=== PATIENT | female | born 1965 | race Caucasian/White ===

== ENCOUNTER 2016-05-20 07:32 | Emergency (ER) | payer OTHER ==
[2016-05-20 08:16] LABS: Hematocrit 31 % (35-47); Hemoglobin 10.1 g/dl (12.0-16.0); Mean Corpuscular HGB Conc 33 g/dl (31-36); Mean Corpuscular Hemoglobin 31 pg (27-31); Mean Corpuscular Volume 93 fL (80-97); Mean Platelet Volume 7 um3 (7.4-10.4); Red Blood Count 3.31 10^6/ul (4.0-5.4); Red Cell Distribution Width 17 % (10.5-15); White Blood Count 6.4 10^3/ul (3.5-10.8)
--- NOTE | 2016-05-20 08:19 | RAD ---
HISTORY: Chest pain COMPARISONS: None VIEWS: 2: Frontal and lateral views of the chest. FINDINGS: CARDIOMEDIASTINAL SILHOUETTE: The cardiomediastinal silhouette is normal. A prosthetic heart valve is noted. ITZEL: The itzel are normal. PLEURA: The costophrenic angles are sharp. No pleural abnormalities are noted. LUNG PARENCHYMA: There is hyperinflation with flattening of the diaphragm and expansion of the AP diameter of the chest. ABDOMEN: The upper abdomen is clear. There is no subphrenic gas. BONES AND SOFT TISSUES: The patient is status post median sternotomy. Degenerative changes are noted OTHER: None. IMPRESSION: HYPERINFLATION, CONSISTENT WITH COPD. NO ACTIVE CARDIOPULMONARY DISEASE.
[2016-05-20 08:36] LABS: ALT 9 U/L (7-52); AST 9 U/L (13-39); Albumin 3.7 g/dL (3.2-5.2); Alkaline Phosphatase 80 U/L (34-104); Anion Gap 5 mmol/L (2-11); BUN/Creatinine Ratio 15.2 (8-20); Blood Urea Nitrogen 17 mg/dL (6-24); C Reactive Protein 20.03 mg/L (< 5.00); CO2 Carbon Dioxide 25 mmol/L (22-32); Calcium 8.9 mg/dL (8.6-10.3); Chloride 105 mmol/L (101-111); Creatine Kinase 58 U/L (10-223); EGFR Non-African American 51.3 (>60); Globulin 3.5 g/dL (2-4); Glucose 122 mg/dL (70-100); Lipase < 10 U/L (11.0-82.0); Potassium 3.9 mmol/L (3.5-5.0); Sodium 135 mmol/L (133-145); Total Protein 7.2 g/dL (6.4-8.9)
[2016-05-20 08:37] LABS: Troponin I 0.01 ng/mL (<0.04)
[2016-05-20] MEDS ORDERED: Ondansetron INJ* 2 MG/ML VIAL IV ONE (08:50)
[2016-05-20] MEDS ORDERED: Morphine INJ* 4 MG/ML 1 ML CARPUJECT IV ONE ×3 (08:50→13:01)
[2016-05-20] MEDS ORDERED: Iodixanol* (CONTRAST) 320 MG/ML 100 ML SDV IV ONE (09:01)
[2016-05-20 09:06] LABS: TSH (Thyroid Stimulating Horm) 8.62 mcIU/mL (0.34-5.60)
[2016-05-20 10:09] LABS: Urine Bacteria Absent (Absent); Urine Bilirubin Negative (Negative); Urine Glucose Negative (Negative); Urine Nitrite Negative (Negative)
--- NOTE | 2016-05-20 11:21 | RAD ---
HISTORY: Chest pain, positive d-dimer COMPARISONS: CT of the abdomen and pelvis dated August 14, 2012 TECHNIQUE: Multiple contiguous axial CT scans of the chest were obtained after the administration of nonionic intravenous contrast, timed to the pulmonary arterial phase of contrast enhancement.. Coronal and sagittal multiplanar reformations are also submitted for review. FINDINGS: NECK AND THYROID: The lower neck and thyroid are unremarkable. CHEST WALL: There is no lower cervical, axillary, or supraclavicular lymphadenopathy by size criteria. HEART AND PERICARDIUM: There is a prosthetic mitral valve AORTA AND PULMONARY VASCULATURE: There is no pulmonary arterial filling defect to suggest pulmonary embolism. There is no linear filling defect within the aorta to suggest aortic dissection. MEDIASTINUM: There is no mediastinal lymphadenopathy by size criteria. ITZEL: There is no hilar lymphadenopathy by size criteria. AIRWAY AND ESOPHAGUS: The airway is unremarkable, without endobronchial filling defect. The esophagus is grossly normal. LUNG PARENCHYMA: The lungs are clear. PLEURA: No pleural abnormalities are noted. UPPER ABDOMEN: There is nodular thickening of the adrenal gland on the left, stable BONES AND SOFT TISSUES: The patient is status post median sternotomy. Degenerative changes are noted of the spine OTHER: None. IMPRESSION: NO PULMONARY ARTERIAL FILLING DEFECT TO SUGGEST PULMONARY EMBOLISM
--- NOTE | 2016-05-20 12:27 | RAD ---
HISTORY: Right lower extremity Pedal edema, positive d-dimer COMPARISONS: None relevant TECHNIQUE: Multiple transverse and longitudinal ultrasound images were obtained of the right lower extremity from the level of the common femoral vein inferiorly through to the infrapopliteal veins using grayscale, color Doppler, and spectral Doppler imaging with and without compression and with augmentation. Comparison images were obtained of the contralateral common femoral vein. FINDINGS: VEINS: The venous system of the right lower extremity is compressible throughout its course, with normal flow on color Doppler imaging and normal response to augmentation on spectral Doppler imaging. SOFT TISSUES: Unremarkable. OTHER FINDINGS: None. IMPRESSION: NO RIGHT LOWER EXTREMITY DEEP VEIN THROMBOSIS
--- NOTE | 2016-05-20 13:07 | ED ---
Nasreen Oreilly Salem, scribed for Anish Box MD on 05/20/16 at 0805 . HPI Chest Pain - HPI Summary HPI Summary: Patient is 50 y/o female who presents to the ED with CP localized on the left side since yesterday. She reports SOB, lightheadedness, pedal edema, and dizziness. She rates her pain as an 8-9/10 and reports it radiates to her neck and arm. Pain is worsened by sitting up and ambulating. Pt states she had a mitral valve replacement in 2012 (but denies any stent placements). She describes the CP as similar to the sx in 2012 that brought her into the hospital. She also reports an infection in her valve in August 2015 and a couple of surgeries in March 2016 and April 2016 for DVT. Pt is on Coumadin. PMHx is significant for COPD, [place], Asthma, DM, and DVT. - History of Current Complaint Time Seen by Provider: 05/20/16 07:35 Hx Obtained From: Patient Onset/Duration: Started Days Ago - 1 day., Still Present Timing: Constant, Lasting Days Initial Severity: Moderate Current Severity: Moderate Chest Pain Location: Left Anterior Chest Pain Radiates To:: Arm, Neck Aggravating Factor(s): Position - Sitting up., Movement - Ambulating. Alleviating Factor(s): Position - Recumbent position. Associated Signs and Symptoms: Positive: Chest Pain, Dizziness, Shortness of Breath, Swelling - Legs., Lightheadedness - Allergy/Home Medications Allergies/Adverse Reactions: Allergies Allergy/AdvReac Type Severity Reaction Status Date / Time Codeine Allergy Unknown Verified 05/20/16 08:17 Reaction Details Ketorolac Tromethamine Allergy Unknown Verified 05/20/16 08:17 [From Toradol] Reaction Details Tramadol [From Ultram] Allergy Unknown Verified 05/20/16 08:17 Reaction Details PMH/Surg Hx/FS Hx/Imm Hx Endocrine/Hematology History: Reports: Hx Diabetes Denies: Hx Anticoagulant Therapy Cardiovascular History: Reports: Hx Deep Vein Thrombosis, Hx Hypertension - on exertion, Other Cardiovascular Problems/Disorders - blockage of carotid arteries bilaterally. Denies: Hx Congestive Heart Failure Respiratory History: Reports: Hx Asthma, Hx Chronic Obstructive Pulmonary Disease (COPD) - emphysema, Other Respiratory Problems/Disorders - COPD, pneumonia GI History: Reports: Other GI Disorders - diverticulitis, constipation History: Reports: Hx Renal Disease - new onset renal disease found on urine test at [place]., Other Problems/Disorders - hx of kidney stones, family hx of polycystic kidneys, new onset renal dis. Musculoskeletal History: Reports: Other Musculoskeletal History - fibromyalgia, restless leg syndrome Neurological History: Reports: Other Neuro Impairments/Disorders - depression, anxiety, personality disorder. DDD Denies: Hx Dementia, Hx Seizures Psychiatric History: Denies: Hx Substance Abuse - Cancer History Cancer Type, Location and Year: cervical ca - Surgical History Surgery Procedure, Year, and Place: cholecystectomy, appendectomy, carpal tunnel , bladder sling, balloon in uterus Infectious Disease History: Yes Infectious Disease History: Reports: Hx of Known/Suspected MRSA - 10 years ago/ in throat Denies: Hx Hepatitis, Hx Human Immunodeficiency Virus (HIV), Traveled Outside the [place] in Last 30 Days - Family History Known Family History: Positive: Diabetes, Other - COPD. Blood Clotting Disorders. Aneurysm. - Social History Substance Use Type: Reports: None Hx Tobacco Use: Yes Review of Systems Positive: Other - Reports open wound on foot and buttocks. Positive: Chest Pain - Radiates to neck and arm. Positive: Shortness Of Breath Positive: Edema - Pedal. Neurological: Other - Lightheadedness. Dizziness. All Other Systems Reviewed And Are Negative: Yes Physical Exam Triage Information Reviewed: Yes Vital Signs On Initial Exam: Initial Vitals Temp Pulse Resp BP Pulse Ox 99.7 F 81 16 125/70 100 05/20/16 07:33 05/20/16 07:33 05/20/16 07:33 05/20/16 07:33 05/20/16 07:33 Vital Signs Reviewed: Yes Appearance: Positive: Well-Appearing Skin: Positive: Warm, Skin Color Reflects Adequate Perfusion, Dry Head/Face: Positive: Normal Head/Face Inspection Eyes: Positive: EOMI, LINDSEY ENT: Positive: Normal ENT inspection Neck: Positive: Supple, Nontender Respiratory/Lung Sounds: Positive: Clear to Auscultation, Breath Sounds Present Cardiovascular: Positive: RRR Abdomen Description: Positive: Nontender, Soft Bowel Sounds: Positive: Present Musculoskeletal: Positive: Edema Left, Edema Right, Other - Bilateral surgical wound eschars on lower extremities. Neurological: Positive: Sensory/Motor Intact, Alert, Oriented to Person Place, Time Psychiatric: Positive: Affect/Mood Appropriate Diagnostics - Vital Signs Vital Signs Temp Pulse Resp BP Pulse Ox 05/20/16 07:33 99.7 F 81 16 125/70 100 - Laboratory Lab Results: Lab Results 05/20/16 05/20/16 05/20/16 Range/Units 08:00 08:00 08:00 WBC 6.4 (3.5-10.8) 10^3/ul RBC 3.31 L (4.0-5.4) 10^6/ul Hgb 10.1 L (12.0-16.0) g/dl Hct 31 L (35-47) % MCV 93 (80-97) fL MCH 31 (27-31) pg MCHC 33 (31-36) g/dl RDW 17 H (10.5-15) % Plt Count 220 (150-450) 10^3/ul MPV 7 L (7.4-10.4) um3 Neut % (Auto) 63.5 (38-83) % Lymph % (Auto) 27.5 (25-47) % [place] % (Auto) 5.0 (1-9) % Eos % (Auto) 2.8 (0-6) % Baso % (Auto) 1.2 (0-2) % Absolute Neuts (auto) 4.1 (1.5-7.7) 10^3/ul Absolute Lymphs (auto) 1.8 (1.0-4.8) 10^3/ul Absolute Monos (auto) 0.3 (0-0.8) 10^3/ul Absolute Eos (auto) 0.2 (0-0.6) 10^3/ul Absolute Basos (auto) 0.1 (0-0.2) 10^3/ul Absolute Nucleated RBC 0 10^3/ul Nucleated RBC % 0 INR (Anticoag Therapy) 1.64 H (0.89-1.11) APTT 37.5 H (26.0-36.3) seconds D-Dimer, Quantitative 306 H (Less Than 230) ng/mL Sodium (133-145) mmol/L Potassium (3.5-5.0) mmol/L Chloride (101-111) mmol/L Carbon Dioxide (22-32) mmol/L Anion Gap (2-11) mmol/L BUN (6-24) mg/dL Creatinine (0.51-0.95) mg/dL Est GFR ( Amer) (>60) Est GFR (Non-Af Amer) (>60) BUN/Creatinine Ratio (8-20) Glucose (70-100) mg/dL Lactic Acid (0.5-2.0) mmol/L Calcium (8.6-10.3) mg/dL Magnesium (1.9-2.7) mg/dL Total Bilirubin (0.2-1.0) mg/dL AST (13-39) U/L ALT (7-52) U/L Alkaline Phosphatase (34-104) U/L Total Creatine Kinase (10-223) U/L CK-MB (CK-2) (0.6-6.3) ng/mL Troponin I (<0.04) ng/mL C-Reactive Protein (< 5.00) mg/L B-Natriuretic Peptide 266 H ( - 100) pg/mL Total Protein (6.4-8.9) g/dL Albumin (3.2-5.2) g/dL Globulin (2-4) g/dL Albumin/Globulin Ratio (1-3) Lipase (11.0-82.0) U/L TSH (0.34-5.60) mcIU/mL Urine Color Urine Appearance Urine pH (5-9) Ur Specific [place] (1.010-1.030) Urine Protein (Negative) Urine Ketones (Negative) Urine Blood (Negative) Urine Nitrate (Negative) Urine Bilirubin (Negative) Urine Urobilinogen (Negative) Ur Leukocyte Esterase (Negative) Urine WBC (Auto) (Absent) Urine RBC (Auto) (Absent) Ur Squamous Epith Cells (Absent) Urine Bacteria (Absent) Urine Glucose (Negative) 05/20/16 05/20/16 05/20/16 Range/Units 08:00 08:00 09:30 WBC (3.5-10.8) 10^3/ul RBC (4.0-5.4) 10^6/ul Hgb (12.0-16.0) g/dl Hct (35-47) % MCV (80-97) fL MCH (27-31) pg MCHC (31-36) g/dl RDW (10.5-15) % Plt Count (150-450) 10^3/ul MPV (7.4-10.4) um3 Neut % (Auto) (38-83) % Lymph % (Auto) (25-47) % [place] % (Auto) (1-9) % Eos % (Auto) (0-6) % Baso % (Auto) (0-2) % Absolute Neuts (auto) (1.5-7.7) 10^3/ul Absolute Lymphs (auto) (1.0-4.8) 10^3/ul Absolute Monos (auto) (0-0.8) 10^3/ul Absolute Eos (auto) (0-0.6) 10^3/ul Absolute Basos (auto) (0-0.2) 10^3/ul Absolute Nucleated RBC 10^3/ul Nucleated RBC % INR (Anticoag Therapy) (0.89-1.11) APTT (26.0-36.3) seconds D-Dimer, Quantitative (Less Than 230) ng/mL Sodium 135 (133-145) mmol/L Potassium 3.9 (3.5-5.0) mmol/L Chloride 105 (101-111) mmol/L Carbon Dioxide 25 (22-32) mmol/L Anion Gap 5 (2-11) mmol/L BUN 17 (6-24) mg/dL Creatinine 1.12 H (0.51-0.95) mg/dL Est GFR ( Amer) 66.0 (>60) Est GFR (Non-Af Amer) 51.3 (>60) BUN/Creatinine Ratio 15.2 (8-20) Glucose 122 H (70-100) mg/dL Lactic Acid 1.2 (0.5-2.0) mmol/L Calcium 8.9 (8.6-10.3) mg/dL Magnesium 2.0 (1.9-2.7) mg/dL Total Bilirubin 0.30 (0.2-1.0) mg/dL AST 9 L (13-39) U/L ALT 9 (7-52) U/L Alkaline Phosphatase 80 (34-104) U/L Total Creatine Kinase 58 (10-223) U/L CK-MB (CK-2) 2.5 (0.6-6.3) ng/mL Troponin I 0.01 (<0.04) ng/mL C-Reactive Protein 20.03 H (< 5.00) mg/L B-Natriuretic Peptide ( - 100) pg/mL Total Protein 7.2 (6.4-8.9) g/dL Albumin 3.7 (3.2-5.2) g/dL Globulin 3.5 (2-4) g/dL Albumin/Globulin Ratio 1.1 (1-3) Lipase < 10 L (11.0-82.0) U/L TSH 8.62 H (0.34-5.60) mcIU/mL Urine Color Yellow Urine Appearance Clear Urine pH 6.0 (5-9) Ur Specific [place] 1.016 (1.010-1.030) Urine Protein 2+(100 mg/dl) H (Negative) Urine Ketones Negative (Negative) Urine Blood Negative (Negative) Urine Nitrate Negative (Negative) Urine Bilirubin Negative (Negative) Urine Urobilinogen Negative (Negative) Ur Leukocyte Esterase 2+ H (Negative) Urine WBC (Auto) Trace(0-5/hpf) (Absent) Urine RBC (Auto) 1+(3-5/hpf) H (Absent) Ur Squamous Epith Cells Present H (Absent) Urine Bacteria Absent (Absent) Urine Glucose Negative (Negative) Result Diagrams: 05/20/16 08:00 05/20/16 08:00 Lab Statement: Any lab studies that have been ordered have been reviewed, and results considered in the medical decision making process. - Radiology CXR Radiology Interpretation Completed By: Radiologist - IMPRESSION: HYPERINFLATION , CONSISTENT WITH COPD. NO ACTIVE CARDIOPULMONARY DISEASE. - CT CHEST CT Interpretation Completed By: Radiologist - IMPRESSION: NO PULMONARY ARTERIAL FILLING DEFECT TO SUGGEST PULMONARY EMBOLISM - Ultrasound No standard instances Ultrasound Interpretation Completed By: Radiologist - IMPRESSION: NO RIGHT LOWER EXTREMITY DEEP VEIN THROMBOSIS - EKG 0731 Ectopy: None EKG Interpretation: Normal sinus [address] elevation. Re-Evaluation - Re-Evaluation First Eval Re-Evaluation Time: 08:46 Comment: Disscused test results with pt. Chest Pain Course/Dx - Course Assessment/Plan: DISCUSSED RESULTS WITH PATIENT. SHE HAS RUN OUT OF HER CHRONIC PAIN MED RX. DISCUSSED ADMISSION WITH PATIENT, SHE DECLINED ADMISSION AT THIS TIME. DISCHARGE HOME STABLE. RX OXYCODONE 5MG #15 TO COVER HER UNTIL SHE CAN CONTACT HER PMD. - Diagnoses Provider Diagnoses: Chest pain Discharge - Discharge Plan Condition: Stable Disposition: HOME Prescriptions: oxyCODONE TAB* [Roxycodone TAB 5 mg*] 5 mg PO Q4H PRN #15 tab MDD 6 PRN Reason: Pain Patient Education Materials: Chest Pain (ED) Referrals: Toya Iniguez MD [Primary Care Provider] - Additional Instructions: FOLLOW UP WITH YOUR DOCTOR. RETURN TO THE EMERGENCY DEPARTMENT FOR ANY WORSENING OF YOUR CONDITION; PAIN, SHORTNESS OF BREATH, YOU FEEL ILL OR QUESTIONS OR CONCERNS. The documentation as recorded by the Nasreen goldman Salem accurately reflects the service I personally performed and the decisions made by me, Anish Box MD.
[2016-05-20 13:48] VITALS: BP 126/64
== END 2016-05-20 13:45 | disposition home or self-care (01) ==
LOC: ED 07:32
DX: R07.9 Chest pain, unspecified (principal); R42 Dizziness and giddiness; R06.02 Shortness of breath
CPT/HCPCS: 36415; 71020; 71275; 80053; 81003; 81015; 82550; 82553; 83605; 83690; 83735; 83880; 84443; 84484; 85025; 85379; 85610; 85730; 86140; 87086; 99283; J2270; J2405; Q9967

== ENCOUNTER 2017-05-22 14:21 | Emergency (ER) | payer OTHER ==
[2017-05-22] MEDS ORDERED: NS 0.9% 1000 ML* 1,000 ML IV ONE (14:52)
[2017-05-22] MEDS ORDERED: Albuterol 2.5 MG/3 ML NEB.SOL* (0.083%) INH ONE (15:15)
[2017-05-22] MEDS ORDERED: methylPREDNISolone 125 MG* 2 ML VIAL IV ONE (15:15)
[2017-05-22] MEDS ORDERED: Morphine INJ* 10 MG/ML 1 ML CARPUJECT IV ONE (15:16)
[2017-05-22] MEDS ORDERED: Ondansetron INJ* 2 MG/ML VIAL IV ONE (15:16)
--- NOTE | 2017-05-22 15:36 | RAD ---
Indication: Chest pain. Single frontal view of the chest performed at 1513 hours was reviewed. Comparison is made with previous exam dated May 20, 2016. No mediastinal shift is noted. Heart is of normal size and configuration. Lung artis appear clear. Patient is status post changed sternal thoracotomy. IMPRESSION: NO ACTIVE CARDIOPULMONARY DISEASE IS NOTED.
[2017-05-22 15:41] LABS: ABS Basophils 0 10^3/ul (0-0.2); ABS Eosinophils 0 10^3/ul (0-0.6); ABS Lymphocytes 1.3 10^3/ul (1.0-4.8); ABS Monocytes 0.1 10^3/ul (0-0.8); ABS Neutrophils 7.5 10^3/ul (1.5-7.7); ABS Nucleated RBC 0 10^3/ul; Eosinophil % 0 % (0-6); Hematocrit 37 % (35-47); Hemoglobin 12.7 g/dl (12.0-16.0); Lymphocyte % 14.4 % (25-47); Mean Corpuscular HGB Conc 34 g/dl (31-36); Mean Corpuscular Hemoglobin 32 pg (27-31); Mean Corpuscular Volume 93 fL (80-97); Mean Platelet Volume 7 um3 (7.4-10.4); Nucleated Red Blood Cells % 0.1; Platelet Count 233 10^3/ul (150-450); Red Blood Count 3.98 10^6/ul (4.0-5.4); Red Cell Distribution Width 15 % (10.5-15); White Blood Count 8.9 10^3/ul (3.5-10.8)
[2017-05-22 15:49] LABS: Urine Appearance Clear; Urine Blood 2+ (Negative); Urine Color Straw; Urine Ketones Negative (Negative); Urine Protein 2+(100 mg/dL) (Negative); Urine Specific Gravity 1.008 (1.010-1.030); Urine Urobilinogen Negative (Negative)
[2017-05-22 15:53] LABS: EGFR Non-African American 69.3 (>60)
[2017-05-22] MEDS ORDERED: Morphine ORAL.SOLN 10 mg* 2 MG/ML UDC 5 ml PO ONE (16:13)
[2017-05-22] MEDS ORDERED: Morphine TAB Extended Release (*) 30 MG TAB.ER PO ONE (16:43)
[2017-05-22 17:02] VITALS: BP 123/65
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
== END 2017-05-22 17:00 | disposition home or self-care (01) ==
LOC: ED 14:21
DX: R07.9 Chest pain, unspecified (principal); G89.29 Other chronic pain; E11.65 Type 2 diabetes mellitus with hyperglycemia; R31.29 Other microscopic hematuria; F17.200 Nicotine dependence, unspecified, uncomplicated; Z88.5 Allergy status to narcotic agent
CPT/HCPCS: 36415; 71045; 80053; 81003; 81015; 82550; 82553; 83605; 83735; 83880; 84484; 85025; 85379; 85610; 87040; 94640; 96360; 96374; 96375; 99283; A9270-GY; J2270; J2405; J2930

== ENCOUNTER 2019-07-16 15:53 | Inpatient (IN) | payer OTHER ==
--- NOTE | 2019-07-16 16:03 | ED ---
Complex/Multi-Sys Presentation - HPI Summary HPI Summary: 53 year old F presenting to [facility] via EMS with a chief complaint of shortness of breath and some chest pain. Per EMS the patient had a right sided lung biopsy done here by Dr. Cervantes and was discharged a few days ago. She developed pain with her chronic cough 2 days ago and was seen in [place] for a chest x- ray today which revealed that her lung was "more collapsed than before." The patient rates the pain 8/10 in severity. Symptoms aggravated by nothing. Symptoms alleviated by nothing. Patient denies any fever or chills. Medication list reviewed. Allergy list reviewed. - History Of Current Complaint Hx Obtained From: Patient, EMS Onset/Duration: Lasting Days Timing: Constant Aggravating Factor(s): None Alleviating Factor(s): None Associated Signs And Symptoms: Positive: SOB, Chest Pain, Other - Pain with cough. Negative: Fever - Allergies/Home Medications Allergies/Adverse Reactions: Allergies Allergy/AdvReac Type Severity Reaction Status Date / Time codeine Allergy Unknown Verified 07/10/19 09:01 Reaction Details ketorolac [From Toradol] Allergy Unknown Verified 07/10/19 09:01 Reaction Details tramadol Allergy Unknown Verified 07/10/19 09:01 Reaction Details Home Medications: Home Medications Benzonatate CAP* [Tessalon CAP*] 100 mg PO BID PRN 08/14/12 [History Confirmed 07/16/19] Docusate CAP* [Colace Cap*] 200 mg PO BID 08/14/12 [History Confirmed 07/16/19] Fluticasone-Salmeterol 250-50* [Advair Diskus 250-50*] 1 inh INH BID 08/14/12 [ History Confirmed 07/16/19] Tiotropium CAPSULE (NF) [Spiriva*] 1 cap INH DAILY 08/14/12 [History Confirmed 07/16/19] zzInsulin GLARGINE(*) [Lantus(*)] 15 units SUBCUT BEDTIME 03/06/13 [History Confirmed 07/16/19] Acetaminophen TAB* [Tylenol TAB*] 325 mg PO Q4H PRN 05/22/17 [History Confirmed 07/16/19] Albuterol 2.5MG/3ML (0.083%)* [Ventolin 2.5 MG/3 ML NEB.ALEXANDER*] 2.5 mg INH .Q4-6H PRN 05/22/17 [History Confirmed 07/16/19] Albuterol inh POWDER (NF) [Proair Respiclick] 2 puff INH .Q4-6H PRN 05/22/17 [ History Confirmed 07/16/19] Baclofen TAB* [Lioresal TAB*] 10 mg PO TID 05/22/17 [History Confirmed 07/16/19] Budesonide NASAL (NF) [Rhinocort Aqua (NF)] 2 spray BOTH NARES DAILY 05/22/17 [ History Confirmed 07/16/19] Carbidopa/Levodop 25/100 MG(*) [Sinemet 25/100 TAB(*)] 1 tab PO BID 05/22/17 [ History Confirmed 07/16/19] Cetirizine* [ZyrTEC 10 MG TAB*] 10 mg PO DAILY 05/22/17 [History Confirmed 07/15] Ferrous Sulfate TAB* 325 mg PO BID 05/22/17 [History Confirmed 07/16/19] Gabapentin CAP(*) [Neurontin 100 mg CAP(*)] 300 mg PO QPM 05/22/17 [History Confirmed 07/16/19] Insulin Lispro [Humalog Kwikpen] 0 - 100 unit SUBCUT . DIRECTED 05/22/17 [ History Confirmed 07/16/19] Lactulose* 1 oz PO BEDTIME PRN 05/22/17 [History Confirmed 07/16/19] Levalbuterol HFA INHALER* [Xopenex Hfa Inhaler*] 1 puff INH Q6H PRN 05/22/17 [ History Confirmed 07/16/19] Levothyroxine TAB* [Synthroid TAB*] 50 mcg PO DAILY 05/22/17 [History Confirmed 07/16/19] Montelukast Sodium TAB* [Singulair TAB*] 10 mg PO BEDTIME 05/22/17 [History Confirmed 07/16/19] Multivitamins/Minerals TAB* [Theragran/minerals TAB*] 1 tab PO DAILY 05/22/17 [ History Confirmed 07/16/19] Nitroglycerin TAB 0.4 MG* 0.4 mg SL Q5M PRN 05/22/17 [History Confirmed 07/16/19 ] Omeprazole CAP (NF) [Prilosec CAP* 20 MG] 20 mg PO DAILY 05/22/17 [History Confirmed 07/16/19] Ondansetron ODT TAB* [Zofran 4 MG Odt TAB*] 4 mg PO TID PRN 05/22/17 [History Confirmed 07/16/19] Ranitidine TAB (NF) [Zantac TAB (NF)] 150 mg PO BID 05/22/17 [History Confirmed 07/16/19] Simvastatin TAB(NF) [Zocor(NF)] 20 mg PO BEDTIME 05/22/17 [History Confirmed ] Vilazodone (NF) [Viibryd (NF)] 40 mg PO DAILY 05/22/17 [History Confirmed ] Warfarin TAB(*) [Coumadin TAB(*)] 5 mg PO BEDTIME 05/22/17 [History Confirmed ] clonazePAM TAB(*) [KlonoPIN TAB(*)] 0.5 mg PO BID 05/22/17 [History Confirmed ] guaiFENesin ER TAB [Mucinex*] 1,200 mg PO BID PRN 05/22/17 [History Confirmed ] Oxycodone HCl 5 mg PO TID 07/10/19 [History Confirmed 07/16/19] QUEtiapine XR TAB* [Seroquel Xr 200 TAB*] 200 mg PO DAILY 07/10/19 [History Confirmed 07/16/19] PMH/Surg Hx/FS Hx/Imm Hx Endocrine/Hematology History: Reports: Hx Diabetes Denies: Hx Anticoagulant Therapy Cardiovascular History: Reports: Hx Deep Vein Thrombosis, Hx Hypertension, Other Cardiovascular Problems/Disorders - blockage of carotid arteries bilaterally, Hx mechanical valve Denies: Hx Congestive Heart Failure Respiratory History: Reports: Hx Asthma, Hx Chronic Obstructive Pulmonary Disease (COPD), Hx Pneumonia, Other Respiratory Problems/Disorders - COPD, pneumonia GI History: Reports: Other GI Disorders - diverticulitis, constipation History: Reports: Hx Kidney Stones, Hx Renal Disease, Other Problems/ Disorders - hx of kidney stones, family hx of polycystic kidneys, new onset renal dis. Musculoskeletal History: Reports: Hx Back Problems, Hx Fibromyalgia, Other Musculoskeletal History - restless leg syndrome Neurological History: Reports: Other Neuro Impairments/Disorders - depression, anxiety, personality disorder. DDD Denies: Hx Dementia, Hx Seizures Psychiatric History: Reports: Hx Depression Denies: Hx Substance Abuse - Cancer History Cancer Type, Location and Year: cervical ca - Surgical History Surgical History: Yes Surgery Procedure, Year, and Place: mitral valve replacement, cholecystectomy, appendectomy, carpal tunnel, bladder sling, uterine ablation Infectious Disease History: Reports: Hx of Known/Suspected MRSA Denies: Hx Hepatitis, Hx Human Immunodeficiency Virus (HIV) - Family History Known Family History: Positive: Diabetes, Renal Disease - polycystic kidney disease, Other - COPD. Blood Clotting Disorders. Aneurysm. - Social History Alcohol Use: Rare Hx Substance Use: Yes Substance Use Type: Reports: Marijuana Substance Use Comment - Amount & Last Used: 1 joint daily Hx Tobacco Use: Yes Smoking Status (MU): Light Every Day Tobacco Smoker Review of Systems Negative: Fever, Chills Positive: Chest Pain Positive: Shortness Of Breath, Cough All Other Systems Reviewed And Are Negative: Yes Physical Exam - Summary Physical Exam Summary: VITAL SIGNS: Reviewed. GENERAL: Patient is an obese female who is lying comfortable in the stretcher. Patient is not in any acute distress. HEAD AND FACE: No signs of trauma. No ecchymosis, hematomas or skull depressions. No sinus tenderness. EYES: PERRL, EOMI x 2, No injected conjunctiva, no nystagmus. EARS: Hearing grossly intact. Ear canals and tympanic membranes are within normal limits. MOUTH: Oropharynx within normal limits. NECK: Supple, trachea is midline, no adenopathy, no JVD, no carotid bruit, no c- spine tenderness, neck with full ROM. CHEST: Symmetric, no tenderness at palpation. LUNGS: Decreased breath sounds in the right lung. CVS: Regular rate and rhythm, S1 and S2 present, no murmurs or gallops appreciated. ABDOMEN: Soft, non-tender. No signs of distention. No rebound, no guarding, and no masses palpated. Bowel sounds are normal. EXTREMITIES: FROM in all major joints, no edema, no cyanosis or clubbing. NEURO: Alert and oriented x 3. No acute neurological deficits. Speech is normal and follows commands. SKIN: Dry and warm. Triage Information Reviewed: Yes Vital Signs Reviewed: Yes Procedures - Sedation Patient Received Moderate/Deep Sedation with Procedure: No Diagnostics - Laboratory Result Diagrams: 07/16/19 16:30 07/16/19 16:30 Lab Statement: Any lab studies that have been ordered have been reviewed, and results considered in the medical decision making process. - Radiology Chest x-ray Radiology Interpretation Completed By: Radiologist Summary of Radiographic Findings: Moderate-sized right pneumothorax is present with atelectasis of the right upper lobe. This appears to BE increased in size when compared to previous exam of 2019. ED physician has reviewed this report. Second Chest x-ray Radiology Interpretation Completed By: ED Physician Summary of Radiographic Findings: Expansion of the lung, chest tube in place. ED physician has reviewed and interpreted this report. - EKG 16:13 Cardiac Rate: NL - 89 BPM EKG Rhythm: Sinus Rhythm Summary of EKG Findings: No ST elevations, normal axis. ED physician has reviewed and interpreted this EKG. Re-Evaluation - Re-Evaluation First Eval Re-Evaluation Time: 18:10 Comment: Chest tube is being placed by Dr. Chavez in the emergency department at this time. Complex Multi-Symp Course/Dx Assessment/Plan: 53 year old F presenting to [facility] via EMS with a chief complaint of shortness of breath and some chest pain. Per EMS the patient had a right sided lung biopsy done here by Dr. Cervantes and was discharged a few days ago. She developed pain with her chronic cough 2 days ago and was seen in [place] for a chest x-ray today which revealed that her lung was "more collapsed than before." The patient rates the pain 8/10 in severity. Symptoms aggravated by nothing. Symptoms alleviated by nothing. Patient denies any fever or chills. Medication list reviewed. Allergy list reviewed. In the ED course the patient was placed on a cardiac nurse specialist, IV access was obtained, IV fluids started. Past medical records reviewed. Blood test w/o a significant abnormality except for INR of 1.49, BUN is 29, creatinine 1.05, glucose 215 and CRP of 8.81. Chest x-ray shows a right pneumothorax. I discussed the case with Dr. Chavez who came and assessed the patient. Dr. Chavez placed a right-sided chest tube. He discussed the case with Dr. Mccloud from the hospital services who accepted the patient for admission. At this point the patient is hemodynamically stable. - Diagnoses Provider Diagnoses: Pneumothorax after biopsy - Physician Notifications Discussed Care Of Patient With: Ericka Mccloud Time Discussed With Above Provider: 18:27 Instructed by Provider To: Other - Discussed with Dr. Mccloud who will admit the patient. - Critical Care Time Critical Care Statement: Critical care time is provided exclusive of any time spent performing procedures. Discharge ED - Sign-Out/Discharge Documenting (check all that apply): Patient Departure - Discharge Plan Condition: Stable Disposition: ADMITTED TO [facility] - Billing Disposition and Condition Condition: STABLE Disposition: Admitted to [facility] - Attestation Statements Document Initiated by Scribe: Yes Documenting Scribe: Hannah Torrez Provider For Whom Cameliaibe is Documenting (Include Credential): Junior Pacheco MD Scribe Attestation: Hannah Oreilly scribed for Junior Pacheco MD on 07/16/19 at 205. Scribe Documentation Reviewed: Yes Provider Attestation: The documentation as recorded by the Hannah goldman accurately reflects the service I personally performed and the decisions made by me, Junior Pacheco MD Status of Scribe Document: Viewed
--- OUTSIDE RECORDS SUMMARY | 2019-07-16 16:27 | XMS REPORT | Continuity of Care Document ---
:1965 External Reference #:[id number] Author Name Rommel Luna DO, MPH (transmitted by agent of provider Margie Gaviria) Address [address] [place] [address], [address] [place] [id number] Care Team Providers Name Role Phone Jessica Porter MD - Care Team Information Vinegar Maker [phone] Anesthesiology Gali Bruno L., MD - Family Medicine Care Team Information Vinegar Maker Problems Active Problems Provider Date Type 2 diabetes mellitus Onset: 07/06/2005 Diffuse cervicobrachial syndrome Rommel Luna DO, MPH Onset: 08/10/2008 Myalgia & Myositis Unspecified Rommel Luna DO, MPH Onset: 08/10/2008 Chronic pain Rommel Luna DO, MPH Onset: 10/14/2018 Neck pain Rommel Luna DO, MPH Onset: 10/14/2018 Synovitis and tenosynovitis Rommel Luna DO, MPH Onset: 10/14/2018 Long-term current use of 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 Rommel Luna DO, MPH Onset: 2018 drug Myalgia of auxiliary muscles, head and neck Rommel Luna, DO, MPH Onset: Degenerative joint disease involving multiple LunaRommel valerio, DO, MPH Onset: joints Heart disease Rommel Luna DO, MPH Onset: 10/14/2018 Amputated below knee Rommel Luna DO, MPH Onset: 10/14/2018 Social History Type Date Description Comments Sex Unknown Cigarette Use Current Cigarette Smoker ETOH Use Denies alcohol use Tobacco Use Start: Unknown Patient is a current smoker, smokes every day Smoking Status Reviewed: 06/12/19 Patient is a current smoker, smokes every day Allergies, Adverse Reactions, Alerts Active Allergies Reaction Severity Comments Date Ultram 09/25/2006 Medications Active Medications SIG Qnty Indications Ordering Date Provider Gloria 1 applied daily 3units Rommel Luna, 06/12/2019 1.8% Patches DO, MPH Oxycodone HCL si by mouth 90tabs Rommel Luna, 10/14/2018 5mg Tablets every 8 hours as DO MPH directed chronic pain patient Flonase Allergy Relief si spray each Unknown nostril daily 50mcg/Act Suspension Gabapentin si by mouth Unknown 300mg Capsules three times a day as directed Xarelto 1 by mouth daily Unknown 20mg Tablets Quetiapine Fumarate 1 by mouth daily Unknown 25mg Tablets Humalog sliding scale Unknown 100Unit/ML Solution Basaglar Kwikpen si units per Unknown day 100Unit/ML Solution Pen-Inject SM Aspirin Adult Low 1 by mouth daily Unknown Strength 81mg Chewtabs Amitriptyline HCL si by mouth Unknown 25mg every night Tablets SM Pain Reliever Extra 1 by mouth every Unknown Strength 6 hours 500mg Capsules Atorvastatin Calcium 1 by mouth daily Unknown 40mg Tablets Baclofen take one by mouth Unknown 10mg Tablets twice a day as directed chronic pain. Levothyroxine Sodium 1 by mouth daily Unknown 50mcg Tablets Zoloft si by mouth Unknown 50mg Tablets every day as directed chronic pain patient Carbidopa-Levodopa ER 1 by mouth daily Unknown 25-100mg Tablets ER Albuterol Inhalation two puffs by Unknown mouth bid-tid 90mcg/Dose Aerosol Levalbuterol HCL Unknown 0.63mg/3ML Nebulizer Spiriva Handihaler Unknown 18mcg Capsules Nitrostat Unknown 0.4mg Tablets Sub Advair Diskus 1 puff bid Unknown 250-50mcg/Dose Aerosol Immunizations Description No Information Available Vital Signs Date Vital Result Comment 06/12/2019 8:51am BP Systolic 132 mmHg BP Diastolic 74 mmHg Heart Rate 78 /min Respiratory Rate 20 /min Height 65 inches 5'5" Weight 170.00 lb per patient Pain Level 9 Pain at this time. Pain Level With Medicine 9 on average with meds Pain Level Without Medicine 9 without meds Pain Level After Procedure 7 BP Systolic Recheck 128 mmHg Pulse: 76 BP Diastolic Recheck 78 mmHg Pulse: 76 BMI (Body Mass Index) 28.3 kg/m2 05/14/2019 8:49am BP Systolic 128 mmHg BP Diastolic 82 mmHg Heart Rate 80 /min Respiratory Rate 20 /min Height 65 inches 5'5" Pain Level 9 Pain at this time. Pain Level With Medicine 8 on average with meds Pain Level Without Medicine 9 without meds Pain Level After Procedure 4 BP Systolic Recheck 144 mmHg Pulse: 84 BP Diastolic Recheck 96 mmHg Pulse: 84 Results Description No Information Available Procedures Date Code Description Status 06/12/2019 43625 Omt 1-2 Body Regions Completed 06/12/2019 71829 Therapeutic, Prophylactic Or Diagnostic Injection Subq/Im Completed 06/12/2019 19934 Injection For Nerve Block, Suprascapular Nerve Completed 06/12/2019 Injection, Single Or Mutiple Trigger Points One Or Two Completed Muscles 06/12/2019 Injection, Tendon Origin/Insertion Completed 06/12/2019 Injection, Tendon Origin/Insertion Completed 06/12/201983902 Inject Tendon/Ligament Completed 06/12/2019 Inject Tendon/Ligament Completed 06/12/2019 Inject Tendon/Ligament Completed 06/12/201965556 Inject Tendon/Ligament Completed 06/12/201988082 Inject Tendon/Ligament Completed 05/14/2019 Arthrocentesis/Aspiration/Inj Of Major Joint Or Bursa W/ Completed Ultra 05/14/2019 Arthrocentesis/Aspiration/Inj Of Major Joint Or Bursa W/ Completed Ultra 05/14/2019 57687 Therapeutic, Prophylactic Or Diagnostic Injection Subq/Im Completed 04/14/2019 82896 Therapeutic, Prophylactic Or Diagnostic Injection Subq/Im Completed 04/14/2019 84692 Injection For Nerve Block, Suprascapular Nerve Completed 04/14/201969851 Injection, Single Or Mutiple Trigger Points One Or Two Completed Muscles 04/14/2019 Injection, Tendon Origin/Insertion Completed 04/14/2019 Injection, Tendon Origin/Insertion Completed 04/14/2019 Inject Tendon/Ligament Completed 04/14/2019 Inject Tendon/Ligament Completed 04/14/2019 Inject Tendon/Ligament Completed 04/14/2019 Inject Tendon/Ligament Completed 02/11/2019 18366 Therapeutic, Prophylactic Or Diagnostic Injection Subq/Im Completed Medical Devices Description No Information Available Encounters Type Date Location Provider Dx Diagnosis Office Visit 06/12/2019 Main Office as Of Rommel Luna DO G89.29 Other chronic pain 9:00a 05/03/13 MPH M54.2 Cervicalgia M99.01 Segmental and somatic dysfunction of cervical region M25.541 Pain in joints of right hand M25.542 Pain in joints of left hand M65.88 Other synovitis and tenosynovitis, other site M46.02 Spinal enthesopathy, cervical region M79.12 Myalgia of auxiliary muscles, head and neck R53.83 Other fatigue Z79.891 [facility] (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 Office Visit 05/14/2019 9:15a Main Office as Rommel Luna G89.29 Other chronic Of 05/03/13 DO, MPH pain M54.2 Cervicalgia M25.541 Pain in joints of right hand M25.542 Pain in joints of left hand R53.83 Other fatigue 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 Office Visit 04/14/2019 9:15a Main Office as Rommel Luna G89.29 Other chronic Of 05/03/13 DO, MPH pain M54.2 Cervicalgia M65.88 Other synovitis and tenosynovitis, other site M46.02 Spinal enthesopathy, cervical region M79.12 Myalgia of auxiliary muscles, head and neck Z79.891 [facility] (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 R53.83 Other fatigue Z13.31 Encounter for screening for depression Office Visit 03/11/2019 9:15a Main Office as Rommel Luna G89.29 Other chronic Of 05/03/13 DO, MPH pain M54.2 Cervicalgia M79.12 Myalgia of auxiliary muscles, head and neck 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 Office Visit 02/11/2019 10:15a Main Office as Luna, Rommel, G89.29 Other chronic Of 05/03/13 DO, MPH pain M54.2 Cervicalgia M79.12 Myalgia of auxiliary muscles, head and neck Z79.891 [facility] (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 R53.83 Other fatigue Assessments Date Code Description Provider 06/12/2019 G89.29 Other chronic pain Luna, Rommel, DO, MPH 06/12/2019 M54.2 Cervicalgia Luna, Rommel, DO, MPH 06/12/2019 M99.01 Segmental and somatic dysfunction of Luna, Rommel, DO, MPH cervical region 06/12/2019 M25.541 Pain in joints of right hand Luna, Rommel, DO, MPH 06/12/2019 M25.542 Pain in joints of left hand Luna, Rommel, DO, MPH 06/12/2019 M65.88 Other synovitis and tenosynovitis, other Luna, Rommel, DO , MPH site 06/12/2019 M46.02 Spinal enthesopathy, cervical region Luna, Rommel, DO, MPH 06/12/2019 M79.12 Myalgia of auxiliary muscles, head and neck Luna, Rommel, DO, MPH 06/12/2019 R53.83 Other fatigue Luna, Rommel, DO, MPH 06/12/2019 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 Luna, Rommel , DO, MPH 05/14/2019 G89.29 Other chronic pain Luna, Rommel, DO, MPH 05/14/2019 M54.2 Cervicalgia Luna, Rommel, DO, MPH 05/14/2019 M25.541 Pain in joints of right hand Luna, Rommel, DO, MPH 05/14/2019 M25.542 Pain in joints of left hand Luna, Rommel, DO, MPH 05/14/2019 R53.83 Other fatigue Luna, Rommel, DO, MPH 05/14/2019 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 Luna, Rommel , DO, MPH 04/14/2019 G89.29 Other chronic pain Luna, Rommel, DO, MPH 04/14/2019 M54.2 Cervicalgia Rommel Luna DO, MPH 04/14/2019 M65.88 Other synovitis and tenosynovitis, other Rommel Luna DO , MPH site 04/14/2019 M46.02 Spinal enthesopathy, cervical region LunaRommel valerio DO, MPH 04/14/2019 M79.12 Myalgia of auxiliary muscles, head and neck Rommel Luna DO, MPH 04/14/2019 Z79.891 [facility] (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 LunaRommel valerio DO, MPH 04/14/2019 R53.83 Other fatigue Rommel Luna DO, MPH 04/14/2019 Z13.31 Encounter for screening for depression Rommel Luna DO, MPH 03/11/2019 G89.29 Other chronic pain Rommel Luna DO, MPH 03/11/2019 M54.2 Cervicalgia Rommel Luna DO, MPH 03/11/2019 M79.12 Myalgia of auxiliary muscles, head and neck LunaRommel valerio DO, MPH 03/11/2019 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 Symptoms and complaints discussed and reviewed today. No significant changes in physical findings. Continue current medical pain management.M54.2 CervicalgiaComments:Chronic. Symptoms and complaints discussed and reviewed today. Physical findings warrant injection therapy. Continue current medical pain management. Injection therapy performed today. Informed consentgiven/refusal reviewed. See procedure sheet. Injection therapy will lower this patient's pain, increase ROM improve functionality and mitigate the need for increased medication.M99.01 Segmental and somatic dysfunction of cervical regionComments:Chronic. Symptoms and complaints discussed and reviewed today. Somatic dysfunctions noted warrantingOMT. Continue current medical pain management and OMT. [id number]. OMT performed.M25.541 Pain in joints of right handComments:Chronic. Symptoms and complaints discussed and reviewed today.No changes in physical findings. Patient is stable and comfortable when current medical therapy is rendered.M25.542 Pain in joints of left handComments: Chronic. Symptoms and complaints discussed and reviewed today. No changes in physical findings. Patient is stable and comfortable when current medical therapy is rendered.M65.88 Other synovitis and tenosynovitis, other siteComments :Chronic. Symptoms and complaints discussed and reviewed today. Physical findings reviewed and warrant intervention. Continue current medical pain management. Injection therapy today - tendon sheath. Informed consent given/ refusal reviewed. See procedure sheet.M46.02 Spinal enthesopathy, cervical regionComments:Chronic. Symptoms and complaints discussed and reviewed today. Physical findings reviewed and warrant intervention. Patient is stable and comfortable with current medical therapy. Injection therapy today.Tendon I/O injections performed. See procedure sheet.M79.12 Myalgia of auxiliary muscles, head and neckComments:Symptoms and complaints discussed and reviewed today. Physical findings reviewed and warrant intervention. Injection therapy today - Trigger Point injections. Informed consent given/refusal reviewed. See procedure sheet.R53.83 Other fatigueComments:Symptoms and complaints discussed and reviewed today. No significant changes in physical findings. Continue current medical pain management. B12 injection administered after patient evaluated. 1ml IM for fatigue. (See Consent for injection-B12 document for lot number and expiration date.)Z79.891 [facility] (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New Labs:Urine Drug Screen, Ordered: 06/12/19Comments:Urine drug screen sample taken today to monitor opiate use and to monitor use of illicit substances.Will discuss results at next appointment.The following tests were ordered:6 AM, AMPH, WILLAM, RENETTA, BUP, CARIS, COCM, ETG, FENT, MCSHSG, OPI, OXY, PCP, TAPEN, XTSY, ZOLP. A urine drug test (UDT) was ordered for this patient and collected on site today. Creatinine has been ordered as well for specimen validity, not for kidney function. Preliminary UDT results are not final and should not be used to determine patient care or plan of treatment. Initially a qualitative immunoassay screen will bedone. Any inconsistent or positive findings will be further tested with a more comprehensive quantitative confirmation LCMS study. It is part of the treatment process of prescribing controlled substances and is considered standard of care.AllNew Medication: Ztlido 1.8 % - 1 applied dailyComments:Continue current medical pain management ; injection therapy, osteopathic manipulation, PT / modalities, and consults as needed to manage chronic pain.Non - opioid pain management discussed and optionsdiscussed.Side effects discussed; anticipatory guidance given. Patient clearly understand and agree with all medical treatments and suggestions. All medicines prescribed are adequate and appropriate for this patient's complaint of pain, medical history, physical, and personal goals.Goals of Treatment are to provide adequate and appropriate multidisciplinary medical pain management to increase/ maintain patient's quality of life and functionality while maintaining satisfactory side effect profile andminimizing correction end-organ damage. Importance of regular nutrition throughout the day discussed.Activity as toleratedContinue with PCP Functional Status Description No Information Available Mental Status Description No Information Available Referrals Description No Information Available
--- OUTSIDE RECORDS SUMMARY | 2019-07-16 16:27 | XMS REPORT | Continuity of Care Document ---
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 Pain Level With Medicine 9 on average with meds Pain Level Without Medicine 9 without meds BMI (Body Mass Index) 28.0 kg/m2 06/12/2019 8:51am BP Systolic 132 mmHg BP [...] 76 BMI (Body Mass Index) 28.3 kg/m2 Results Description No Information Available Procedures Date Code Description Status 06/12/2019 54706 Omt 1-2 Body Regions Completed 06/12/2019 29797 Therapeutic, Prophylactic Or Diagnostic Injection Subq/Im Completed 06/12/2019 63451 Injection For Nerve Block, Suprascapular Nerve Completed 06/12/2019 Injection, Single Or Mutiple Trigger Points One Or Two Completed Muscles 06/12/2019 Injection, Tendon Origin/Insertion Completed 06/12/2019 Injection, Tendon Origin/Insertion Completed 06/12/201910155 Inject Tendon/Ligament Completed 06/12/2019 Inject Tendon/Ligament Completed 06/12/2019 Inject Tendon/Ligament Completed 06/12/2019 Inject Tendon/Ligament Completed 06/12/201964129 Inject Tendon/Ligament Completed 05/14/2019 Arthrocentesis/Aspiration/Inj Of Major Joint Or Bursa W/ Completed Ultra 05/14/2019 Arthrocentesis/Aspiration/Inj Of Major Joint Or Bursa W/ Completed Ultra 05/14/2019 42661 Therapeutic, Prophylactic Or Diagnostic Injection Subq/Im Completed 04/14/2019 46796 Therapeutic, Prophylactic Or Diagnostic Injection Subq/Im Completed 04/14/2019 21670 Injection For Nerve Block, Suprascapular Nerve Completed 04/14/201972322 Injection, Single Or Mutiple Trigger Points One Or Two Completed Muscles 04/14/201991837 Injection, Tendon Origin/Insertion Completed 04/14/2019 Injection, Tendon Origin/Insertion Completed 04/14/2019 Inject Tendon/Ligament Completed 04/14/2019 Inject Tendon/Ligament Completed 04/14/2019 Inject Tendon/Ligament Completed 04/14/2019 Inject Tendon/Ligament Completed 02/11/2019 14347 Therapeutic, Prophylactic Or Diagnostic Injection Subq/Im Completed [...] head and neck R53.83 Other fatigue Z79.891 [facility] (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 Office Visit 05/14/2019 9:15a Main Office as Rommel Luna G89.29 Other chronic Of 05/03/13 DO, MPH pain M54.2 Cervicalgia M25.541 Pain in joints of right hand M25.542 Pain in joints of left hand R53.83 Other fatigue Z79.891 [facility] (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 Office Visit 04/14/2019 9:15a Main Office as Rommel Luna G89.29 Other chronic Of 05/03/13 DO, MPH pain M54.2 Cervicalgia M65.88 Other synovitis and tenosynovitis, other site M46.02 Spinal enthesopathy, cervical region M79.12 Myalgia of auxiliary muscles, head and neck Z79.891 [facility] (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 R53.83 Other fatigue Z13.31 Encounter for screening for depression Office Visit 03/11/2019 9:15a Main Office as Rommel Luna G89.29 Other chronic Of 05/03/13 DO, MPH pain M54.2 Cervicalgia M79.12 Myalgia of auxiliary muscles, head and neck Z79.891 [facility] (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 Office Visit 02/11/2019 10:15a Main Office as Luna, Rommel, G89.29 Other chronic Of 05/03/13 DO, MPH pain M54.2 Cervicalgia M79.12 Myalgia of auxiliary muscles, head and neck 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 R53.83 Other [...] fatigue Luna, Rommel, DO, MPH 06/12/2019 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 Luna, Rommel , DO, MPH 05/14/2019 G89.29 Other chronic pain Luna, Rommel, DO, MPH 05/14/2019 M54.2 Cervicalgia Luna, Rommel, DO, MPH 05/14/2019 M25.541 Pain in joints of right hand Luna, Rommel, DO, MPH 05/14/2019 M25.542 Pain in joints of left hand Luna, Rommel, DO, MPH 05/14/2019 R53.83 Other fatigue Luna, Rommel, DO, MPH 05/14/2019 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 Luna, Rommel , DO, MPH 04/14/2019 G89.29 Other chronic pain Luna, Rommel, DO, MPH 04/14/2019 M54.2 Cervicalgia Rommel Luna DO, MPH 04/14/2019 M65.88 Other synovitis and tenosynovitis, other Rommel Luna DO MPH site 04/14/2019 M46.02 Spinal enthesopathy, cervical region Rommel Luna DO, MPH 04/14/2019 M79.12 Myalgia of auxiliary muscles, head and neck Rommel Luna DO, MPH 04/14/2019 Z79.891 [facility] (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 Rommel Luna DO, MPH 04/14/2019 R53.83 Other fatigue Rommel Luna DO MPH 04/14/2019 Z13.31 Encounter for screening for depression Rommel Luna DO MPH 03/11/2019 G89.29 Other chronic pain Rommel Luna DO MPH 03/11/2019 M54.2 Cervicalgia Rommel Luna DO, MPH 03/11/2019 M79.12 Myalgia of auxiliary muscles, head and neck Rommel Luna DO, MPH 03/11/2019 Z79.891 [facility] (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 Rommel Luna DO, MPH 02/11/2019 G89.29 Other chronic pain oRmmel Luna DO, MPH 02/11/2019 M54.2 Cervicalgia Rommel Luna DO, MPH 02/11/2019 M79.12 Myalgia of auxiliary muscles, head and neck Rommel Luna DO, MPH 02/11/2019 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 Importance of regular nutrition throughout the day discussed.Activity as toleratedContinue with PCP Functional Status Description No Information Available Mental Status Description No Information Available Referrals Description No Information Available
--- OUTSIDE RECORDS SUMMARY | 2019-07-16 16:28 | XMS REPORT | Continuity of Care Document ---
:1965 External Reference #:[id number] Author Name Rommel Luna DO, MPH Address [address] [place] [address], [address] [place] [address] Care Team Providers Name Role Phone Jessica Porter MD - Care Team Information Real Estate Accountant [phone] Anesthesiology Gali Bruno L., MD - Family Medicine Care Team Information Real Estate Accountant [phone] Problems Active Problems Provider Date Type 2 diabetes mellitus Onset: 07/06/2005 Diffuse cervicobrachial syndrome Rommel Luna DO, MPH Onset: 08/10/2008 Myalgia & Myositis Unspecified Rommel Luna DO, MPH Onset: 08/10/2008 Chronic pain Rommel Luna DO, MPH Onset: 10/14/2018 Neck pain Rommel Luna DO, MPH Onset: 10/14/2018 Synovitis and tenosynovitis Rommel Luna DO, MPH Onset: 10/14/2018 Long-term current use of 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 Rommel Luna DO MPH Onset: 2018 drug Myalgia of auxiliary muscles, head and neck Rommel Luna DO, MPH Onset: Degenerative joint disease involving multiple Rommel Luna DO, MPH Onset: joints Heart disease Rommel Luna DO MPH Onset: 10/14/2018 Amputated below knee Rommel Luna DO MPH Onset: 10/14/2018 Social History Type Date Description Comments Sex Unknown Cigarette Use Current Cigarette Smoker ETOH Use Denies alcohol use Tobacco Use Start: Unknown Patient is a current smoker, smokes every day Smoking Status Reviewed: 05/14/19 Patient is a current smoker, smokes every day Allergies, Adverse Reactions, Alerts Active Allergies Reaction Severity Comments Date Ultram 09/25/2006 Medications Active Medications SIG Qnty Indications Ordering Date Provider Oxycodone HCL si by mouth 90tabs Rommel Luna, 10/14/2018 5mg Tablets every 8 hours as DO, [facility] directed chronic pain patient Flonase Allergy Relief [...] Available Vital Signs Date Vital Result Comment 05/14/2019 8:49am BP Systolic 128 mmHg BP [...] BP Diastolic Recheck 96 mmHg Pulse: 84 04/14/2019 9:10am BP Systolic 140 mmHg BP Diastolic 86 mmHg Heart Rate 82 /min Respiratory Rate 20 /min Height 65 inches 5'5" Pain Level 9 Pain at this time. Pain Level With Medicine 9 on average with meds Pain Level Without Medicine 9 without meds Pain Level After Procedure 3 BP Systolic Recheck 136 mmHg Pulse: 80 BP Diastolic Recheck 90 mmHg Pulse: 80 Results Description No Information Available Procedures Date Code Description Status 04/14/2019 67999 Therapeutic, Prophylactic Or Diagnostic Injection Subq/Im Completed 04/14/2019 18244 Injection For Nerve Block, Suprascapular Nerve Completed 04/14/201951946 Injection, Single Or Mutiple Trigger Points One Or Two Completed Muscles 04/14/201944540 Injection, Tendon Origin/Insertion Completed 04/14/2019 27706 Injection, Tendon Origin/Insertion Completed 04/14/201996812 Inject Tendon/Ligament Completed 04/14/2019 53302 Inject Tendon/Ligament Completed 04/14/201918346 Inject Tendon/Ligament Completed 04/14/201988829 Inject Tendon/Ligament Completed 02/11/2019 88966 Therapeutic, Prophylactic Or Diagnostic Injection Subq/Im Completed 12/18/2018 73205 Omt 1-2 Body Regions Completed 12/18/2018 89361 Therapeutic, Prophylactic Or Diagnostic Injection Subq/Im Completed 12/18/2018 15454 Injection For Nerve Block, Suprascapular Nerve Completed 12/18/201883487 Injection, Single Or Mutiple Trigger Points One Or Two Completed Muscles 12/18/201844023 Injection, Tendon Origin/Insertion Completed 12/18/2018 04259 Injection, Tendon Origin/Insertion Completed 12/18/201881472 Inject Tendon/Ligament Completed 12/18/2018 55501 Inject Tendon/Ligament Completed Medical Devices Description No Information Available Encounters Type Date Location Provider Dx Diagnosis Office Visit 04/14/2019 Main Office as Of Rommel Luna DO, G89.29 Other chronic pain 9:15a 05/03/13 MPH M54.2 Cervicalgia M65.88 Other synovitis and tenosynovitis, other site M46.02 Spinal enthesopathy, cervical region M79.12 Myalgia of auxiliary muscles, head and neck Z79.891 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 R53.83 Other fatigue Z13.31 Encounter for screening for depression Office Visit 03/11/2019 9:15a Main Office as Rommel Luna, G89.29 Other chronic Of 05/03/13 DO, MPH pain M54.2 Cervicalgia M79.12 Myalgia of auxiliary muscles, head and neck Z79.891 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 Office Visit 02/11/2019 10:15a Main Office as LunaRommel valerio, G89.29 Other chronic Of 05/03/13 DO, MPH pain M54.2 Cervicalgia M79.12 Myalgia of auxiliary muscles, head and neck Z79.891 FPC (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 R53.83 Other fatigue Office Visit 12/18/2018 10:45a Main Office as Rommel Luna, G89.29 Other chronic Of 05/03/13 DO, MPH pain M54.2 Cervicalgia M99.01 Segmental and somatic dysfunction of cervical region M65.88 Other synovitis and tenosynovitis, other site M46.02 Spinal enthesopathy, cervical region M79.12 Myalgia of auxiliary muscles, head and neck Z79.891 FPC (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 R53.83 Other fatigue Assessments Date Code Description Provider 05/14/2019 G89.29 Other chronic pain Luna, Rommel, DO, MPH 05/14/2019 M54.2 Cervicalgia Luna, Rommel, DO, MPH 05/14/2019 M25.541 Pain in joints of right hand Luna, Rommel, DO, MPH 05/14/2019 M25.542 Pain in joints of left hand Luna, Rommel, DO, MPH 05/14/2019 R53.83 Other fatigue Luna, Rommel, DO, MPH 05/14/2019 Z79.891 FPC (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 Luna, Rommel , DO, MPH 04/14/2019 G89.29 Other chronic pain Luna, Rommel, DO, MPH 04/14/2019 M54.2 Cervicalgia Luna, Rommel, DO, MPH 04/14/2019 M65.88 Other synovitis and tenosynovitis, other Luna, Rommel, DO , MPH site 04/14/2019 M46.02 Spinal enthesopathy, cervical region Luna, Rommel, DO, MPH 04/14/2019 M79.12 Myalgia of auxiliary muscles, head and neck Luna, Rommel, DO, MPH 04/14/2019 Z79.891 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 Luna, Rommel , DO, MPH 04/14/2019 R53.83 Other fatigue Luna, Rommel, DO, MPH 04/14/2019 Z13.31 Encounter for screening for depression Luna, Rommel, DO, MPH 03/11/2019 G89.29 Other chronic pain Luna, Rommel, DO, MPH 03/11/2019 M54.2 Cervicalgia Luna, Rommel, DO, MPH 03/11/2019 M79.12 Myalgia of auxiliary muscles, head and neck Luna, Rommel, DO, MPH 03/11/2019 Z79.891 FPC (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 Luna, Rommel , DO, MPH 02/11/2019 G89.29 Other chronic pain Luna, Rommel, DO, MPH 02/11/2019 M54.2 Cervicalgia Luna, Rommel, DO, MPH 02/11/2019 M79.12 Myalgia of auxiliary muscles, head and neck Luna, Rommel, DO, MPH 02/11/2019 Z79.891 FPC (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 Luna, Rommel , DO, MPH 02/11/2019 R53.83 Other fatigue Luna, Rommel, DO, MPH 12/18/2018 G89.29 Other chronic pain Luna, Rommel, DO, MPH 12/18/2018 M54.2 Cervicalgia Luna, Rommel, DO, MPH 12/18/2018 M99.01 Segmental and somatic dysfunction of Luna, Rommel, DO, MPH cervical region 12/18/2018 M65.88 Other synovitis and tenosynovitis, other Luna, Rommel, DO , MPH site 12/18/2018 M46.02 Spinal enthesopathy, cervical region Luna, Rommel, DO, MPH 12/18/2018 M79.12 Myalgia of auxiliary muscles, head and neck Rommel Luna DO MPH 12/18/2018 Z79.891 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 Symptoms and complaints discussed and reviewed today. No significant changes in physical findings. Continue current medical pain management.M54.2 CervicalgiaComments:Chronic. Symptoms and complaints discussed and reviewed today. No significant changes in physical findings. Continue current medical pain management.M25.541 Pain in joints of right handComments: Chronic. Symptoms and complaints discussed and reviewed today. No significant changes in physical findings. Continue current medical pain management. Injection therapy today to finger joints performed under musculoskeletal ultrasound for demarcation of pertinent structures and needle guidance for injection. Informed consent given/refusal reviewed. See procedure sheet.M25.542 Pain in joints of left handComments:Chronic. Symptoms and complaints discussed and reviewed today. No significant changes in physical findings. Continue current medical pain management. Injection therapy today to finger joints performedunder musculoskeletal ultrasound for demarcation of pertinent structures and needle guidance for injection. Informed consent given/refusal reviewed. See procedure sheet.R53.83 Other fatigueComments:Symptoms and complaints discussed and reviewed today. No significant changes in physical findings. Continue current medical pain management. B12 injection administered after patient evaluated. 1ml IM for fatigue. (See Consent for injection-B12 document for lot number and expiration date.)Z79.891 terminal operator ( 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New Labs:Urine Drug Screen, Ordered: Comments:Urine drug screen sample taken today to monitor opiate use and to monitor use of illicit substances.Will discuss results at next appointment.The following tests were ordered:6 AM, AMPH, WILLAM, RENETTA, BUP, CARIS, COCM, ETG, FENT , MCSHSG, OPI, OXY, PCP, TAPEN, XTSY, ZOLP. [...] controlled substances and is considered standard of care.AllComments:Continue current medical pain management; injection therapy, osteopathic [...] while maintaining satisfactory side effect profile andminimizing terminal operator end-organ damage. Importance of regular nutrition throughout the day discussed.Activity as toleratedContinue with PCP Functional Status Description No Information Available Mental Status Description No Information Available Referrals Description No Information Available
--- OUTSIDE RECORDS SUMMARY | 2019-07-16 16:28 | XMS REPORT | Continuity of Care Document ---
:1965 External Reference #:[id number] Author Name Rommel Luna DO, MPH (transmitted by agent of provider Margie Gaviria) Address [address] [place] [address], [address] [place] [id number] Care Team Providers Name Role Phone Jessica Porter MD - Care Team Information Emergency Veterinary Technician [phone] Anesthesiology Gali Bruno L., MD - Family Medicine Care Team Information Emergency Veterinary Technician Problems Active Problems Provider Date Type 2 [...] Available Procedures Date Code Description Status 06/12/2019 62319 Omt 1-2 Body Regions Completed 06/12/2019 24466 Therapeutic, Prophylactic Or Diagnostic Injection Subq/Im Completed 06/12/2019 91690 Injection For Nerve Block, Suprascapular Nerve Completed 06/12/2019 Injection, Single Or Mutiple Trigger Points One Or Two Completed Muscles 06/12/2019 Injection, Tendon Origin/Insertion Completed 06/12/2019 Injection, Tendon Origin/Insertion Completed 06/12/201917014 Inject Tendon/Ligament Completed 06/12/2019 Inject Tendon/Ligament Completed 06/12/2019 Inject Tendon/Ligament Completed 06/12/201982010 Inject Tendon/Ligament Completed 06/12/201956370 Inject Tendon/Ligament Completed 05/14/2019 Arthrocentesis/Aspiration/Inj Of Major Joint Or Bursa W/ Completed Ultra 05/14/2019 Arthrocentesis/Aspiration/Inj Of Major Joint Or Bursa W/ Completed Ultra 05/14/2019 51558 Therapeutic, Prophylactic Or Diagnostic Injection Subq/Im Completed 04/14/2019 28083 Therapeutic, Prophylactic Or Diagnostic Injection Subq/Im Completed 04/14/2019 13172 Injection For Nerve Block, Suprascapular Nerve Completed 04/14/201972749 Injection, Single Or Mutiple Trigger Points One Or Two Completed Muscles 04/14/2019 Injection, Tendon Origin/Insertion Completed 04/14/2019 Injection, Tendon Origin/Insertion Completed 04/14/2019 Inject Tendon/Ligament Completed 04/14/2019 Inject Tendon/Ligament Completed 04/14/2019 Inject Tendon/Ligament Completed 04/14/2019 Inject Tendon/Ligament Completed 02/11/2019 05283 Therapeutic, Prophylactic Or Diagnostic Injection Subq/Im Completed [...] head and neck R53.83 Other fatigue Z79.891 correction (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 Office Visit 05/14/2019 9:15a Main Office as Rommel Luna G89.29 Other chronic Of 05/03/13 DO, MPH pain M54.2 Cervicalgia M25.541 Pain in joints of right hand M25.542 Pain in joints of left hand R53.83 Other fatigue 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.891 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891 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 Office Visit 02/11/2019 10:15a Main Office as Luna, Rommel, G89.29 Other chronic Of 05/03/13 DO, MPH pain M54.2 Cervicalgia M79.12 Myalgia of auxiliary muscles, head and neck Z79.891 correction (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 R53.83 Other [...] fatigue Luna, Rommel, DO, MPH 06/12/2019 Z79.891 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 Luna, Rommel , DO, MPH 05/14/2019 G89.29 Other chronic pain Luna, Rommel, DO, MPH 05/14/2019 M54.2 Cervicalgia Luna, Rommel, DO, MPH 05/14/2019 M25.541 Pain in joints of right hand Luna, Rommel, DO, MPH 05/14/2019 M25.542 Pain in joints of left hand Luna, Rommel, DO, MPH 05/14/2019 R53.83 Other fatigue Luna, Rommel, DO, MPH 05/14/2019 Z79.891 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 Luna, Rommel [...] neck Rommel Luna DO, MPH 04/14/2019 Z79.891 correction (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 LunaRommel valerio DO, MPH 04/14/2019 R53.83 Other fatigue Rommel Luna DO, MPH 04/14/2019 Z13.31 Encounter for screening for depression Rommel Luna DO, MPH 03/11/2019 G89.29 Other chronic pain Rommel Luna DO, MPH 03/11/2019 M54.2 Cervicalgia Rommel Luna DO, MPH 03/11/2019 M79.12 Myalgia of auxiliary muscles, head and neck LunaRommel valerio DO, MPH 03/11/2019 Z79.891 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 [id number]. OMT performed.M25.541 Pain in joints of right [...] document for lot number and expiration date.)Z79.891 correction (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New Labs:Urine Drug [...] while maintaining satisfactory side effect profile andminimizing longterm end-organ damage. Importance of regular nutrition throughout the day discussed.Activity as toleratedContinue with PCP Functional Status Description No Information Available Mental Status Description No Information Available Referrals Description No Information Available
--- OUTSIDE RECORDS SUMMARY | 2019-07-16 16:28 | XMS REPORT | Continuity of Care Document ---
:1965 External Reference #:[id number] Author Name Rommel Luna DO, MPH (transmitted by agent of provider Raquel Jackson) Address [address] [place] [address], [address] [place] [id number] Care Team Providers Name Role Phone Jessica Porter MD - Care Team Information Tappet Adjuster [phone] Anesthesiology Gali Bruno L., MD - Family Medicine Care Team Information Tappet Adjuster [phone] Problems Active Problems Provider Date Type 2 [...] Information Available Procedures Date Code Description Status 05/14/2019 96845 Therapeutic, Prophylactic Or Diagnostic Injection Subq/Im Completed 05/14/2019 Arthrocentesis/Aspiration/Inj Of Major Joint Or Bursa W/ Completed Ultra 05/14/2019 Arthrocentesis/Aspiration/Inj Of Major Joint Or Bursa W/ Completed Ultra 04/14/2019 Inject Tendon/Ligament Completed 04/14/2019 Inject Tendon/Ligament Completed 04/14/201978533 Inject Tendon/Ligament Completed 04/14/201982229 Inject Tendon/Ligament Completed 04/14/2019 Injection, Tendon Origin/Insertion Completed 04/14/2019 Injection, Tendon Origin/Insertion Completed 04/14/2019 Injection, Single Or Mutiple Trigger Points One Or Two Completed Muscles 04/14/2019 81443 Injection For Nerve Block, Suprascapular Nerve Completed 04/14/2019 45351 Therapeutic, Prophylactic Or Diagnostic Injection Subq/Im Completed 02/11/2019 23930 Therapeutic, Prophylactic Or Diagnostic Injection Subq/Im Completed 12/18/2018 16985 Omt 1-2 Body Regions Completed 12/18/2018 10367 Therapeutic, Prophylactic Or Diagnostic Injection Subq/Im Completed 12/18/2018 61009 Injection For Nerve Block, Suprascapular Nerve Completed 12/18/201814770 Injection, Single Or Mutiple Trigger Points One Or Two Completed Muscles 12/18/2018 Injection, Tendon Origin/Insertion Completed 12/18/2018 Injection, Tendon Origin/Insertion Completed 12/18/2018 Inject Tendon/Ligament Completed 12/18/2018 Inject Tendon/Ligament Completed Medical Devices Description No Information Available Encounters Type Date Location Provider Dx Diagnosis Office Visit 05/14/2019 Main Office as Of Rommel Luna DO, G89.29 Other chronic pain 9:15a 05/03/13 MPH M54.2 Cervicalgia M25.541 Pain in joints of right hand M25.542 Pain in joints of left hand R53.83 Other fatigue Z79.891 prison (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 Office Visit 04/14/2019 9:15a Main Office as Rommel Luna G89.29 Other chronic Of 05/03/13 DO, MPH pain M54.2 Cervicalgia M65.88 Other synovitis and tenosynovitis, other site M46.02 Spinal enthesopathy, cervical region M79.12 Myalgia of auxiliary muscles, head and neck Z79.891 prison (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 R53.83 Other fatigue Z13.31 Encounter for screening for depression Office Visit 03/11/2019 9:15a Main Office as Rommel Luna G89.29 Other chronic Of 05/03/13 DO, MPH pain M54.2 Cervicalgia M79.12 Myalgia of auxiliary muscles, head and neck 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 Office Visit 02/11/2019 10:15a Main Office as Rommel Luna G89.29 Other chronic Of 05/03/13 DO, MPH pain M54.2 Cervicalgia M79.12 Myalgia of auxiliary muscles, head and neck Z79.891 prison (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 R53.83 Other fatigue Office Visit 12/18/2018 10:45a Main Office as Rommel Luna G89.29 Other chronic Of 05/03/13 DO, MPH pain M54.2 Cervicalgia M99.01 Segmental and somatic dysfunction of cervical region M65.88 Other synovitis and tenosynovitis, other site M46.02 Spinal enthesopathy, cervical region M79.12 Myalgia of auxiliary muscles, head and neck Z79.891 prison (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 R53.83 Other fatigue Assessments Date Code Description Provider 05/14/2019 G89.29 Other chronic pain Luna, Rommel, DO, MPH 05/14/2019 M54.2 Cervicalgia Luna, Rommel, DO, MPH 05/14/2019 M25.541 Pain in joints of right hand Luna, Rommel, DO, MPH 05/14/2019 M25.542 Pain in joints of left hand Luna, Rommel, DO, MPH 05/14/2019 R53.83 Other fatigue Luna, Rommel, DO, MPH 05/14/2019 Z79.891 prison (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 Luna, Rommel [...] neck Luna, Rommel, DO, MPH 04/14/2019 Z79.891 prison (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 Luna, Rommel , DO, MPH 04/14/2019 R53.83 Other fatigue Luna, Rommel, DO, MPH 04/14/2019 Z13.31 Encounter for screening for depression Luna, Rommel, DO, MPH 03/11/2019 G89.29 Other chronic pain Luna, Rommel, DO, MPH 03/11/2019 M54.2 Cervicalgia Luna, Rommel, DO, MPH 03/11/2019 M79.12 Myalgia of auxiliary muscles, head and neck Luna, Rommel, DO, MPH 03/11/2019 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 Luna, Rommel , DO, MPH 02/11/2019 G89.29 Other chronic pain Luna, Rommel, DO, MPH 02/11/2019 M54.2 Cervicalgia Rommel Luna DO, MPH 02/11/2019 M79.12 Myalgia of auxiliary muscles, head and neck Rommel Luna DO, MPH 02/11/2019 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 Rommel Luna DO, MPH 02/11/2019 R53.83 Other fatigue Rommel Luna DO MPH 12/18/2018 G89.29 Other chronic pain Rommel Luna DO, MPH 12/18/2018 M54.2 Cervicalgia Rommel Luna DO, MPH 12/18/2018 M99.01 Segmental and somatic dysfunction of Rommel Luna DO MPH cervical region 12/18/2018 M65.88 Other synovitis and tenosynovitis, other Rommel Luna DO MPH site 12/18/2018 M46.02 Spinal enthesopathy, cervical region Rommel Luna DO MPH 12/18/2018 M79.12 Myalgia of auxiliary muscles, head and neck Rommel Luna DO, MPH 12/18/2018 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 Importance of regular nutrition throughout the day discussed.Activity as toleratedContinue with PCP Functional Status Description No Information Available Mental Status Description No Information Available Referrals Description No Information Available
--- OUTSIDE RECORDS SUMMARY | 2019-07-16 16:28 | XMS REPORT | Continuity of Care Document ---
:1965 External Reference #:[id number] Author Name Valerie Cervantes MD (transmitted by agent of provider Jolanta Alejandro) Address [address], [address] [place] [address] Care Team Providers Name Role Phone Supriya Merino MD - Family Care Team Information Traffic Manager Medicine Problems Active Problems Provider Date Neck pain Billy Coyne M.D. Onset: 01/15/2013 Lumbosacral spondylosis without myelopathy Billy Coyne M.D. Onset: Social History Type Date Description Comments Sex Unknown Tobacco Use Start: Unknown Currently smokes 1-5 Cigarettes Daily ETOH Use Denies alcohol use Recreational Drug Use Denies Drug Use Tobacco Use Start: Unknown Patient is a current smoker, smokes every day Recreational Drug Use Regularly uses Marijuana Smoking Status Reviewed: 06/11/19 Patient is a current smoker, smokes every day Allergies, Adverse Reactions, Alerts Active Allergies Reaction Severity Comments Date Codeine Urticaria Moderate 01/15/2013 Toradol Allergic asthma Moderate 01/15/2013 Ultram Allergic asthma Severe 01/15/2013 Medications Active Medications SIG Qnty Indications Ordering Provider Date Coumadin Unknown 5mg Tablets Imitrex one tablet at Unknown 100mg Tablets onset of migraine as directed, may repeat in 2 hours, use no more than twice a week Albuterol Sulfate Andria Damon (2.5mg/3ML) 0.083% Nebulizer Ventolin HFA Inhale Two Puffs Unknown By Mouth Every 4 108(90Base) mcg/Act To 6 Hours as Aerosol Needed Sertraline HCL Take 1 Tablet By Unknown 100mg Mouth Nightly Tablets Metoprolol Tartrate Take One Tablet By Unknown Mouth Twice A Day 25mg Tablets Ranitidine HCL Take One Tablet By Unknown 150mg Mouth Twice A Day Tablets Docusate Sodium Take Two Capsules Unknown 100mg By Mouth Every Day Capsules Fluticasone [place] Two Sprays Unknown Propionate In Each Nostril 50mcg/Act Every Day Suspension Omeprazole Take One Capsule Unknown 40mg By Mouth Every Day Capsules DR Ferrous Sulfate Take One Tablet By Unknown Mouth Every Day 325(65Fe) mg Tablets With Breakfast Clopidogrel Take One Tablet By Unknown Bisulfate Mouth Every Day 75mg Tablets Oxycodone HCL Rommel Luna, DO 5mg Tablets Lantus Unknown 100Unit/ML Solution Celexa Unknown 40mg Tablets Leslie Unknown 60mg Caps ER 24HR Nitrostat Unknown 0.4mg Tablets Sub Benzonatate Unknown 100mg Capsules Skelaxin Unknown 800mg Tablets Advair Diskus Unknown 250-50mcg/Dose Aerosol Spiriva Handihaler Unknown 18mcg Capsules Singulair Unknown 10mg Tablets Aspirin Low Strength Unknown 81mg Chewtabs Celebrex 1 po bid prn for 30caps Unknown 200mg pain - limit to Capsules not more than 35 capsules per 30 day period. Seroquel XR Unknown 200mg Tablets ER 24HR Immunizations Description No Information Available Vital Signs Date Vital Result Comment 06/11/2019 10:18am Height 65 inches 5'5" Heart Rate 86 /min BP Systolic Sitting 150 mmHg BP Diastolic Sitting 90 mmHg O2 % BldC Oximetry 95 % 03/20/2019 10:21am Height 65 inches 5'5" Weight 170.00 lb Heart Rate 86 /min BP Systolic Sitting 124 mmHg Lue large cuff BP Diastolic Sitting 76 mmHg Lue large cuff Respiratory Rate 16 /min O2 % BldC Oximetry 95 % BMI (Body Mass Index) 28.3 kg/m2 Results Test Acquired Date Facility Test Result H/L Range Note Laboratory test 05/20/2019 [facility] 148 mg/dL High 70-[address] [place] [address] [phone] Laboratory test 05/08/2019 [facility] 314 mg/dL High 70-100 [address] [place] [address] [phone] Laboratory test 05/08/2019 [facility] 264 mg/dL High 70-100 [address] [place] [address] [phone] 1 Potato Loader: [id number] 2 Potato Loader: [id number] 3 Potato Loader: [id number] Procedures Date Code Description Status 05/01/2019 19617 Diffusing Capacity Completed 05/01/2019 91955 Plethysmography Determination Lung Volumes & Per Airway Completed Resist 05/01/2019 65805 Pulmonary Function><Bronchodil Completed Medical Devices Description No Information Available Encounters Type Date Location Provider Dx Diagnosis Office Visit 06/11/2019 Pulmonology And Valerie Cervantes, R91.8 Other nonspecific 10:45a [facility] abnormal finding of Helicopter Specialist lung field J44.9 Chronic obstructive pulmonary disease, unspecified F17.210 Nicotine dependence, cigarettes, uncomplicated Office Visit 03/20/2019 10:30a Pulmonology And Valerie R91.8 Other nonspecific [facility] MD Helen abnormal finding Helicopter Specialist of lung field J44.9 Chronic obstructive pulmonary disease, unspecified F17.210 Nicotine dependence, cigarettes, uncomplicated Assessments Date Code Description Provider 06/11/2019 R91.8 Other nonspecific abnormal finding of lung Valerie Cervantes MD [facility] 06/11/2019 J44.9 Chronic obstructive pulmonary disease, Valerie Cervantes MD unspecified 06/11/2019 F17.210 Nicotine dependence, cigarettes, uncomplicated Valerie Cervantes MD 05/01/2019 J44.9 Chronic obstructive pulmonary disease, Valerie Cervantes MD unspecified 03/20/2019 R91.8 Other nonspecific abnormal finding of lung Valerie Cervantes MD [facility] 03/20/2019 J44.9 Chronic obstructive pulmonary disease, Valerie Cervantes MD unspecified 03/20/2019 F17.210 Nicotine dependence, cigarettes, uncomplicated Valerie Cervantes MD Plan of Treatment Future Appointment(s):07/04/2019 11:30 am - Valerie Cervantes MD at [facility] [address]06/11/2019 - Valerie Cervantes, MDR91.8 Other nonspecific abnormal finding of lung fieldNew Xrays:CT Biopsy Lung Right [id number] - [id number], Ordered: 06/11/19Follow up:2 tclrzM50.9 Chronic obstructive pulmonary disease, noiojkoewlvP12.210 Nicotine dependence, cigarettes, uncomplicated Functional Status Description No Information Available Mental Status Description No Information Available Referrals Description No Information Available
[2019-07-16 16:57] LABS: ABS Basophils 0.1 10^3/ul (0-0.2); ABS Eosinophils 0.1 10^3/ul (0-0.6); ABS Lymphocytes 2.1 10^3/ul (1.0-4.8); ABS Monocytes 0.4 10^3/ul (0-0.8); ABS Neutrophils 6.6 10^3/ul (1.5-7.7); Eosinophil % 1.3 %; Hematocrit 39 % (35-47); Hemoglobin 13.4 g/dL (12.0-16.0); Lymphocyte % 22.2 %; Mean Corpuscular HGB Conc 35 g/dL (31-36); Mean Corpuscular Hemoglobin 32 pg (27-31); Mean Corpuscular Volume 93 fL (80-97); Mean Platelet Volume 7.7 fL (7.4-10.4); Nucleated Red Blood Cells % 0.2; Platelet Count 283 10^3/uL (150-450); Red Blood Count 4.17 10^6 /uL (3.70-4.87); Red Cell Distribution Width 15 % (10-15); White Blood Count 9.3 10^3/uL (3.5-10.8)
[2019-07-16 17:01] LABS: ALT 5 U/L (7-52); Albumin 3.9 g/dL (3.2-5.2); Albumin/Globulin Ratio 1.4 (1-3); Alkaline Phosphatase 85 U/L (34-104); BUN/Creatinine Ratio 27.6 (8-20); Blood Urea Nitrogen 29 mg/dL (6-24); C Reactive Protein 8.81 mg/L (<8.01); CO2 Carbon Dioxide 26 mmol/L (22-32); Calcium 8.8 mg/dL (8.6-10.3); Chloride 105 mmol/L (101-111); EGFR African American 66.1 (>60); EGFR Non-African American 54.6 (>60); Globulin 2.8 g/dL (2-4); Glucose 215 mg/dL (70-100); Sodium 135 mmol/L (135-145); Total Protein 6.7 g/dL (6.4-8.9)
[2019-07-16 17:25] LABS: Anion Gap 4 mmol/L (2-11)
[2019-07-16 17:44] LABS: INR 1.49 (0.82-1.09)
[2019-07-16] MEDS ORDERED: Morphine 4 MG/ML VIAL (1 ml) 4 MG/ML VIAL IV ONE ×2 (17:58→18:27)
[2019-07-16] MEDS ORDERED: Lidocaine 1% INJ* 10 MG/ML 30 ML SDV ONE (18:13)
[2019-07-16] MEDS ORDERED: Morphine 4 MG/ML VIAL (1 ml) 4 MG/ML VIAL ONE (18:18)
[2019-07-16] MEDS ORDERED: Ondansetron INJ* 2 MG/ML VIAL IV PRN (18:55)
--- NOTE | 2019-07-16 18:55 | OP ---
Operative Report - Blank - Operative Report Date of Operation: 07/16/19 Note: OPERATIVE REPORT Pre-op: Right pneumothorax Post-Op: Same Procedure:Insertion of right 8F pneumothorax catheter Surgeon: MD Scott Asst: none Anes: 1% lidocaine, 8 mg IV morphine IVF:min EBL:min Specimen: none Drain: 8F catheter Wound: 1 Findings: Above Pt tolerated well
[2019-07-16] MEDS ORDERED: guaiFENesin ER TAB 600 MG PO PRN (18:57)
[2019-07-16] MEDS ORDERED: Nitroglycerin TAB 0.4 MG* 0.4 MG TAB SL PRN (18:57)
[2019-07-16] MEDS ORDERED: Albuterol 2.5 MG/3 ML NEB.SOL* (0.083%) INH PRN (18:57)
[2019-07-16] MEDS ORDERED: Benzonatate CAP* 100 MG PO PRN (18:57)
[2019-07-16] MEDS ORDERED: Ondansetron ODT TAB* 4 MG PO PRN (18:57)
[2019-07-16] MEDS ORDERED: Lactulose* 15 ML UDC PO PRN (18:57)
--- NOTE | 2019-07-16 19:30 | OP ---
CC: [facility]; Dr. Valentín Almanzar; Dr. Valerie Cervantes* OPERATIVE REPORT: DATE OF OPERATION: 07/16/19 - Inpatient, SSU [id number] DATE OF : 63 SURGEON: Ron Chavez MD. PETROLEUM REFINERY OPERATOR: None. ANESTHESIA: 1% lidocaine with epinephrine. PRE-OP DIAGNOSIS: Right pneumothorax, status post lung biopsy. POST-OP DIAGNOSIS: Right pneumothorax, status post lung biopsy. OPERATIVE PROCEDURE: Insertion of an 8-Mongolian percutaneous pneumothorax catheter. ESTIMATED BLOOD LOSS: Trace. COMPLICATIONS: None. WOUND CLASSIFICATION: I. DRAINS: 8-Mongolian catheter. SPECIMENS: None. INDICATIONS: Ms. Ida Jean is a 53-year-old woman who presented to the emergency room with increasing chest discomfort and shortness of breath, mainly on the right side after undergoing a lung biopsy last week. There was a small pneumothorax postprocedure. This was stable. She was discharged home; however , presented back to the emergency room with an increase in size of the pneumothorax and now a chest tube is to be inserted. The procedure was discussed with her and the risks of, but not limited to, bleeding, infection, cardiopulmonary injury, discomfort, catheter malfunction, and hospital stay were all discussed. FINDINGS: As above. DESCRIPTION OF PROCEDURE: Written informed consent was obtained. The right anterior chest was marked with indelible ink. No antibiotics were administered. The patient was placed in the upright sitting position. The right anterior superior chest was prepped and draped in the usual sterile fashion. Time-out verification was completed. The second rib was traced laterally from the sternomanubrial junction and the rib surface was palpated. 1% lidocaine was infiltrated down to the rib and superior to the rib entered the chest cavity with aspiration of air. A small estelita was made in the skin and an 8-Mongolian catheter over the needle was then inserted without difficulty to the hub. This was attached to the appropriate catheter tubing and placed to the Pleur-evac suction. There was condensation within the tubing and the patient tolerated the procedure well. Catheter was secured to the skin with several 2-0 silk sutures and an occlusive Vaseline gauze and Tegaderm dressing was placed to secure the tube to the chest wall. The patient tolerated the procedure well. The postprocedure chest x-ray showed the catheter to be in good position with apparent complete expansion of the lung and no other acute findings. [id number]/[facility] #: [id number] [facility] CENTERSadie
[2019-07-16] MEDS: Acetaminophen TAB* 325 MG PO PRN (19:33)
--- NOTE | 2019-07-16 20:03 | CONS ---
CC: [facility]; Dr. Valerie Cervantes; Dr. Valentín Almanzar* CONSULTATION REPORT: DATE OF CONSULT: 07/16/19 REASON FOR CONSULTATION: Right pneumothorax after right lung biopsy. HISTORY OF PRESENT ILLNESS: Ms. Ida Jean is a 53-year-old woman with a significant history of long-term smoking, diabetes, hypothyroidism, obesity, coronary artery disease, depression/anxiety, COPD, gastroesophageal reflux disease, and infective endocarditis, status post mitral valve replacement and with a history of DVT, who underwent a right upper lobe lung CT-guided biopsy on 07/10/19. There was a small pneumothorax noted by Dr. Almanzar after the procedure, but this was stable 3 to 4 hours later and she was discharged home. Over the weekend and through Sunday, she developed some increased discomfort in the right chest with shortness of breath. She does not have a vehicle, lives in [place], was not able to go to the hospital earlier this week, but called Dr. Almanzar's office today with her complaints and was told to come to the emergency room. While here, she was noted to be somewhat tachypneic with stable vital signs, although she was slightly tachycardic and a slight decrease in oxygen saturations. A chest x-ray showed a moderate-sized right pneumothorax with collapse of the lung with atelectasis of the portion of the lung as well. Surgical consultation was obtained. The patient is on Coumadin for her mitral valve replacement. She had been bridged with Lovenox and took her last dose of Lovenox last evening. INR in the emergency room today is a little under 1.5 and she has been taking her Coumadin. She has not had Lovenox now for almost 24 hours. PAST MEDICAL HISTORY: As per above. PAST SURGICAL HISTORY: Median sternotomy for mitral valve replacement due to endocarditis. MEDICATIONS: Include: 1. Seroquel. 2. Celebrex. 3. Aspirin. 4. Singulair. 5. Spiriva. 6. Advair Diskus. 7. Skelaxin. 8. Benzonatate. 9. Nitrostat. 10. Celexa. 11. Lantus insulin. 12. Nitroglycerin. 13. Singulair. 14. Synthroid. 15. Xopenex. 16. Lactulose. 17. Zyrtec. 18. Rhinocort. 19. Sinemet. 20. Tylenol. ALLERGIES: She is allergic to CODEINE, KETOROLAC, and TRAMADOL. FAMILY HISTORY: Her father had kidney disease, due to brain aneurysm at a young age. Her mother had diabetes and also early due to lung disease. SOCIAL HISTORY: She lives with her . She is disabled. She smokes tobacco and is a current smoker every day. She denies alcohol use. She denies drug use. She does use marijuana regularly. She drinks coffee daily. REVIEW OF SYSTEMS: As per above. Pulmonary: No wheezing. No hemoptysis. She has been short of breath. She does have right side chest pain. Cardiac: There is no chest pain or arrhythmia. GI: No abdominal pain or distention. : No urgency or hematuria. PHYSICAL EXAM: Temperature 98.8, pulse 96, blood pressure 131/74. In general, she is mildly obese woman who is somewhat tachypneic, but is awake, alert, conversive, and very pleasant. Her oral mucosa is somewhat dry. Trachea is midline. There is no crepitus to the neck or chest. Lungs with diminished breath sounds throughout, but decreased at the right apex. She has a well- healed median sternotomy incision. There is some ecchymosis over the anterior right chest from the previous biopsy site. Abdomen is soft, nondistended, and no tenderness. Psychiatric: She is awake, alert, oriented x3. IMPRESSION AND PLAN: Right pneumothorax status post CT-guided lung biopsy last week by Interventional Radiology, Dr. Almanzar. She has developed increasing symptoms of pain, increased shortness of breath, and a repeat chest x-ray on return to the emergency room shows an increase in size of the pneumothorax. The patient is presently anticoagulated; however, her INR today is not therapeutic and she took her last dose of Lovenox last evening, so there is an obvious optimal window for chest tube insertion. I discussed all of the findings with her today here in the emergency room. I recommend a percutaneous chest tube be inserted to reexpand the lung. She lives with her without a vehicle and came in an ambulance and she will need to be admitted and placed on Pleur-Evac suction with serial chest x-rays. I discussed her care with her hospitalist, Dr. Mccloud, as well as DANIELITO Quinn. She will be admitted to the hospitalist service for medical management. I would like to hold the Lovenox at least until tomorrow morning to make sure there is no bleeding complications from this chest tube insertion. If she has no signs of bleeding, we could restart her Lovenox and subsequent Coumadin over the next several days. Please see separate dictated pneumothorax catheter insertion note. [id number]/[facility] #: [id number] MTDD
[2019-07-16] MEDS: Insulin GLARGINE(*) 1 UNITS UNIT SUBCUT SCH (22:43)
[2019-07-16] MEDS: Ferrous Sulfate TAB* 325 MG PO SCH (22:44)
[2019-07-16] MEDS: Famotidine TAB* 20 MG PO SCH (22:45)
[2019-07-16] MEDS: Montelukast Sodium TAB* 10 MG PO SCH (22:45)
[2019-07-16] MEDS: clonazePAM TAB(*) 0.5 MG PO SCH (22:45)
[2019-07-16] MEDS: oxyCODONE TAB* 5 MG TAB PO SCH (22:45)
[2019-07-16] MEDS: Atorvastatin* 10 MG TAB PO SCH (22:45)
[2019-07-16] MEDS: Carbidopa/Levodop 25/100 MG TAB(*) PO SCH (22:45)
[2019-07-16] MEDS: Docusate CAP* 100 MG PO SCH (22:46)
[2019-07-16] MEDS: Gabapentin CAP(*) 300 MG PO SCH (22:46)
[2019-07-16] MEDS: Baclofen TAB* 10 MG PO SCH (22:46)
--- NOTE | 2019-07-16 22:47 | HP ---
CC: Dr. Supriya Merino; Dr. Samina Singleton* ADMISSION HISTORY AND PHYSICAL: DATE OF ADMISSION: 07/16/19 PRIMARY CARE PROVIDER: Dr. Supriya Merino, [facility] in [place]. MY ATTENDING WHILE IN THE HOSPITAL: Dr. Samina Singleton* (dictated by DANIELITO Poe). CONSULTING SURGEON: Dr. Ron Chavez. OUTPATIENT ENHANCED ENVIRONMENTAL OPERATOR: Dr. Valerie Cervantes. CHIEF COMPLAINT: Chest pain x2 days. HISTORY OF PRESENT ILLNESS: Ms. Jean is a 53-year-old female with past medical history significant for multiple pulmonary emboli, coronary artery disease, chronic kidney disease, mitral valve replacement due to infective endocarditis after osteomyelitis of the right leg requiring right below-knee amputation in May of this year, had a CTA of her chest 07/09/19. The patient then had a followup with Dr. Cervantes who recommended a biopsy. A PET scan was performed before this and it showed a hypermetabolic mass without hypermetabolic lymphadenopathy. The patient had the CT-guided biopsy with Dr. Valentín Almanzar on 07/10/19. The patient had held her Coumadin for 4 days before that and was bridged with Lovenox, which she was taking twice a day prior to this procedure. After the procedure, she was only taking her Lovenox once a day at 80 mg daily and resumed her Coumadin. The patient had not yet reached therapeutic status when she developed a severe right-sided chest pain 4 days after her procedure. The patient had no complications prior to that. The patient called Dr. Almanzar's office and was instructed to come in to the emergency department. In the emergency department, the patient was found to have a worsening of her pneumothorax which was known to be periprocedural and a chest tube was placed by Dr. Ron Chavez of Surgery, and we were asked to evaluate the patient for admission to the hospital. PAST MEDICAL HISTORY: Diabetes mellitus type 2, multiple pulmonary emboli, coronary artery disease, hypertension, COPD, chronic kidney disease, hypothyroidism, history of osteomyelitis of the right lower extremity, infective endocarditis, mitral valve replacement due to infective endocarditis, hypertension, active tobacco abuse. PAST SURGICAL HISTORY: Appendectomy, cholecystectomy, carpal tunnel release, right leg amputation. MEDICATIONS: Per medication reconciliation: 1. Docusate 200 mg p.o. b.i.d. 2. Benzonatate 100 mg p.o. b.i.d. as needed. 3. Advair 250/50 one inhalation b.i.d. 4. Spiriva 1 cap inhalation daily. 5. Insulin glargine 15 units subcutaneous at bedtime. 6. Synthroid 50 mcg p.o. daily. 7. Tylenol 325 mg p.o. daily as needed. 8. Gabapentin 300 mg p.o. daily. 9. Carbidopa/levodopa 1 tab p.o. b.i.d. 10. Clonazepam 0.5 mg p.o. b.i.d. 11. Cetirizine 10 mg p.o. daily. 12. Vilazodone 40 mg p.o. daily. 13. Ranitidine 150 mg p.o. b.i.d. 14. Omeprazole 20 mg p.o. daily. 15. Budesonide 2 sprays both nares daily. 16. Simvastatin 20 mg p.o. daily. 17. Warfarin 5 mg p.o. at bedtime. 18. Baclofen 10 mg p.o. t.i.d. 19. Zofran 4 mg p.o. t.i.d. as needed. 20. Multivitamin 1 tab p.o. daily. 21. Ferrous sulfate 325 mg p.o. b.i.d. 22. Nitroglycerin 0.4 mg sublingually q.5 minutes as needed. 23. Insulin lispro sliding scale with meals. 24. Montelukast 10 mg p.o. daily. 25. Albuterol inhalation 2 puff inhalation q.4 hours to q.6 hours as needed. 26. Ventolin 2.5 mg inhalation q.4 to 6 hours as needed. 27. Xopenex inhaler 1 puff inhalation q.6 hours as needed. 28. Mucinex 1200 mg p.o. b.i.d. as needed. 29. Lactulose 1 ounce p.o. at bedtime as needed. 30. Oxycodone 5 mg p.o. t.i.d. 31. Quetiapine XR 200 mg p.o. daily. 31. Metoprolol tartrate 25 mg p.o. b.i.d. ALLERGIES: CODEINE, TORADOL, TRAMADOL. FAMILY HISTORY: The patient's father had CKD and of a brain aneurysm at 37. The patient's mother had diabetes and lung disease, and of her lung disease at age 42. SOCIAL HISTORY: The patient still smokes 1 to 5 cigarettes a day. She states she has only done so for approximately 10 years. The patient drinks rare alcohol and uses routine marijuana. The patient is disabled since 1979. The patient is , has no children. The patient's surrogate decision maker will be her Justin Jean. REVIEW OF SYSTEMS: A 10-point review of systems was reviewed and negative except as above in the HPI. PHYSICAL EXAMINATION GENERAL: The patient is a 53-year-old female who appears much older than stated age, sitting in the bed, somewhat groggy, presumably from pain medication. VITAL SIGNS: At time of evaluation, temperature 98.0, pulse rate 96, respiratory rate 18, oxygen saturation 94% on room air, blood pressure 131/74. HEENT: Head normocephalic, atraumatic. Sclerae anicteric. No conjunctival injection. Nasal mucosa moist. Oral mucosa moist. No pharyngeal erythema, discharge, or exudate. NECK: Supple, nontender. No lymphadenopathy. No carotid bruits auscultated. No JVD. RESPIRATORY: Diminished throughout. No wheezes, rales, or rhonchi. Good air exchange bilaterally. CARDIAC: Regular rate and rhythm. No clicks, murmurs, gallops, or rubs. Pulses 2+ in bilateral dorsalis pedis, posterior tibialis, and radial areas. ABDOMEN: Soft, nontender, nondistended. Bowel sounds present, normoactive in all 4 quadrants. No hepatosplenomegaly. No abdominal bruits auscultated. No hepatojugular reflux. GENITOURINARY: No suprapubic or CVA tenderness. NEUROLOGIC: Cranial nerves II through XII intact. No focal deficits. Alert and oriented x3. PSYCHIATRIC: Pleasant and cooperative. SKIN: Clear, intact. No rashes. DIAGNOSTIC STUDIES/LAB DATA: White blood cell count 9.3, hemoglobin 13.4. INR 1.49. Sodium 135, potassium not processed, chloride 105, carbon dioxide 26 , anion gap 4, BUN 29, creatinine 1.05, glucose 215, calcium 8.8. Bilirubin 0.3 , AST not processed, ALT 5, alkaline phosphatase 85. CRP 8.81. Protein 6.7, albumin 3.9, globulin 2.8. Studies: Chest x-ray shows moderate size right pneumothorax is present without atelectasis of the right upper lobe. This appears to be increased when compared to previous exam of 07/10/19. EKG is nonischemic. ASSESSMENT AND PLAN: Impression: Ms. Jean is a 53-year-old female with past medical history significant for chronic obstructive pulmonary disease, chronic kidney disease, infective endocarditis, status post mechanical mitral valve replacement, and multiple pulmonary emboli, who presents to the emergency department with severe right-sided chest pain after a biopsy of a right upper lobe mass, found to have worsening pneumothorax, status post chest tube placement. The patient will be admitted to the hospital for chest tube monitoring, pain control, and observation. 1. Periprocedural pneumothorax, status post chest tube placement. The patient' s pneumothorax appears to have improved per the surgeon Dr. Chavez after chest tube placement. This is consistent with the patient's exam. This is a relatively minor bleeding risk procedure; however, the patient will have her Coumadin held for tonight and her Lovenox restarted as soon as possible after the surgery, as the patient has not actually been compliant with her Lovenox, missing this morning's dose which was previously prescribed. The patient is also nontherapeutic on her INR 11.49 with a goal of 2.5 to 3.5. The patient will have repeat chest x-ray at 8 a.m., and at that point, it will be decided, in the absence of pneumothorax, if the patient can restart her Lovenox at that time to decrease of risk of thrombosis. This is the plan that will be undertaken if possible. The patient's chest tube management will be per Surgery and they will advance the patient to wall suction and to Heimlich valve as per their discretion. 2. Chronic obstructive pulmonary disease, lung mass. The patient has advanced chronic obstructive pulmonary disease and a lung mass, which has been found to be squamous cell carcinoma and nonkeratinizing. The patient should follow closely with Pulmonology or Hematology/Oncology to discuss treatment options and next steps. The patient has not been told by anybody that result of her biopsy yet and is not actively pursuing this knowledge. This will be deferred to her outpatient providers if possible. 3. Multiple pulmonary embolisms. Continue the patient's anticoagulation as above. The patient has multiple risk factors for thrombosis particularly in light of recently diagnosed active malignancy. 4. Coronary artery disease. Continue the patient's anticoagulation as above. The patient is on aspirin or Plavix or a statin. It is unclear why this is. This will be deferred to the patient's outpatient provider. 5. High blood pressure. The patient's blood pressure is currently normotensive , off of medication. Hold Metoprolol at this time. 6. Chronic kidney disease. This appears to be at the patient's baseline. 7. Hypothyroidism. Continue the patient's home dose Synthroid. TSH check is not indicated at this time. It was normal in May of this year. 8. Diabetes mellitus type 2. Continue the patient's glargine and sliding scale insulin. The patient's hemoglobin A1c was 11.4 in May of this year. The patient needs to follow up closely with outpatient provider in order to help remedy this. 9. History of mitral valve replacement. Anticoagulation as above. The patient 's INR goal is 2.5 to 3.5 until proven otherwise. 10. FEN: The patient will have a heart healthy diet. Caffeine okay. It was not indicated at this time. 11. Disposition: The patient will be admitted for observation in the hospital. 12. Code status: Likely she will be a full code. TIME SPENT: Approximately 60 minutes was spent on the admission of this patient , 30 of which was spent [id number] with the patient obtaining history and physical and discussing treatment plan. The plan was discussed with my attending Dr. Samina Singleton; she is in agreement. DANIELITO POE [id number]/[facility] #: [id number]
[2019-07-16] MEDS: Morphine INJ* 2 MG/ML 1 ML SYRINGE (TWO MG - NEW SYRINGE VERSION) IV PRN (22:49)
[2019-07-16] MEDS: Mometasone/Formoter 200/5 MDI INH SCH (23:31)
[2019-07-17] MEDS: Morphine INJ* 2 MG/ML 1 ML SYRINGE (TWO MG - NEW SYRINGE VERSION) IV PRN ×3 (03:21→11:37)
[2019-07-17] MEDS: Acetaminophen TAB* 325 MG PO PRN (05:53)
[2019-07-17] MEDS: Levothyroxine TAB* 50 MCG TAB PO SCH (05:54)
[2019-07-17] MEDS: Mometasone/Formoter 200/5 MDI INH SCH ×2 (07:15→21:05)
[2019-07-17] MEDS: SPIRIVA Respimat* (tiotropium) 2.5 mcg/inh Inhaler INH SCH (07:15)
[2019-07-17 07:49] LABS: ABS Basophils 0.1 10^3/ul (0-0.2); ABS Eosinophils 0.1 10^3/ul (0-0.6); ABS Lymphocytes 1.5 10^3/ul (1.0-4.8); ABS Monocytes 0.3 10^3/ul (0-0.8); ABS Neutrophils 4.2 10^3/ul (1.5-7.7); Eosinophil % 1.3 %; Hematocrit 37 % (35-47); Hemoglobin 12.5 g/dL (12.0-16.0); Lymphocyte % 24.6 %; Mean Corpuscular HGB Conc 34 g/dL (31-36); Mean Corpuscular Hemoglobin 32 pg (27-31); Mean Corpuscular Volume 94 fL (80-97); Mean Platelet Volume 7.9 fL (7.4-10.4); Platelet Count 193 10^3/uL (150-450); Red Blood Count 3.93 10^6 /uL (3.70-4.87); Red Cell Distribution Width 15 % (10-15); White Blood Count 6.1 10^3/uL (3.5-10.8)
[2019-07-17 07:59] LABS: BUN/Creatinine Ratio 24.2 (8-20); Calcium 8.6 mg/dL (8.6-10.3); EGFR African American 56.6 (>60); EGFR Non-African American 46.8 (>60); Magnesium 1.8 mg/dL (1.9-2.7); Potassium 4.3 mmol/L (3.5-5.0)
[2019-07-17 08:01] LABS: INR 1.34 (0.82-1.09)
[2019-07-17] MEDS: oxyCODONE TAB* 5 MG TAB PO SCH ×3 (08:47→22:31)
[2019-07-17] MEDS: Multivitamins/Minerals TAB PO SCH (08:50)
[2019-07-17] MEDS: Ferrous Sulfate TAB* 325 MG PO SCH ×2 (08:50→20:58)
[2019-07-17] MEDS: Docusate CAP* 100 MG PO SCH ×2 (08:50→20:57)
[2019-07-17] MEDS: Carbidopa/Levodop 25/100 MG TAB(*) PO SCH ×2 (08:50→20:58)
[2019-07-17] MEDS: QUEtiapine XR TAB* 200 MG PO SCH (08:50)
[2019-07-17] MEDS: Famotidine TAB* 20 MG PO SCH ×2 (08:50→20:57)
[2019-07-17] MEDS: Cetirizine* 10 MG TAB PO SCH (08:51)
[2019-07-17] MEDS: clonazePAM TAB(*) 0.5 MG PO SCH ×2 (08:51→20:57)
[2019-07-17] MEDS: Pantoprazole TAB * 40 MG TAB PO SCH (08:51)
[2019-07-17] MEDS: Baclofen TAB* 10 MG PO SCH ×3 (08:51→22:31)
[2019-07-17] MEDS: CMC:Vilazodone (NF) 40 MG TAB PO SCH (08:52)
[2019-07-17] MEDS ORDERED: Magnesium Sulfate 1 GM IV* 1 GM/100 ML BAG IV ONE (08:57)
--- NOTE | 2019-07-17 08:57 | PN ---
Progress Note - Progress Note Date of Service: 07/17/19 Note: Surgery Progress: S: c/o pain (r/t chest tube) and SOB (> her baseline). Tolerating po well. O: Vital Signs - 8 hr 07/17/19 07/17/19 07/17/19 03:21 04:11 06:34 Temperature 97.5 F Pulse Rate 89 Respiratory 20 20 18 Rate Blood Pressure 134/66 (mmHg) O2 Sat by Pulse 97 Oximetry 07/17/19 07/17/19 07/17/19 07:30 07:33 08:47 Temperature 97.0 F Pulse Rate 88 Respiratory 18 18 18 Rate Blood Pressure 130/79 (mmHg) O2 Sat by Pulse 96 Oximetry 07/17/19 08:51 Temperature Pulse Rate Respiratory 18 Rate Blood Pressure (mmHg) O2 Sat by Pulse Oximetry Intake and Output Last 24 Hours 07/15/19 07/16/19 07/17/19 07/18/19 06:59 06:59 06:59 06:59 Intake Total 300 Output Total 206 125 Balance 94 -125 Weight 170 lb Intake: Oral 300 Output: Chest Tube #1 6 Urine 200 125 Gen: sitting up in bed, just finishing bfast; nasal O2 on at 2 lpm; NAD; somewhat somnolent at times Heart: reg Lungs: clear w/ few exp wheezes chest tube: no evidence of airleak cxray today: no residual ptx A: Right ptx, after lung bx, resolved post chest tube placement P: will d/w Dr. Chavez; possibly place to H2O seal; consider removal later today or tomorrow if lung remains up.
[2019-07-17] MEDS ORDERED: Dextrose 50% Syringe 50 ML* 25 GM/50 ML SYRINGE IV PUSH PRN (09:15)
--- NOTE | 2019-07-17 10:12 | PN ---
Subjective Date of Service: 07/17/19 Interval History: Patient continues to have severe, but slightly diminished pain in her right chest, paticularly with breathing and worst at the chest tube site. Patient denies cough, hemoptysis, dizziness, palpitations, SOB, F/C, or other pain. Family History: Unchanged from Admission Social History: Unchanged from Admission Past Medical History: Unchanged from Admission Objective Active Medications: Acetaminophen (Tylenol Tab*) 650 mg PO Q6H PRN PRN Reason: MILD PAIN or TEMP > 100.4 Last Admin: 07/17/19 05:53 Dose: 650 mg Albuterol (Ventolin 2.5 Mg/3 Ml Neb.Anna*) 2.5 mg INH Q4H PRN PRN Reason: SHORTNESS OF BREATH Atorvastatin Calcium (Lipitor*) 10 mg PO BEDTIME [facility] Last Admin: 07/16/19 22:45 Dose: 10 mg Baclofen (Lioresal Tab*) 10 mg PO TID [facility] Last Admin: 07/17/19 08:51 Dose: 10 mg Benzonatate (Tessalon Cap*) 100 mg PO BID PRN PRN Reason: COUGH Carbidopa/Levodopa (Sinemet 25/100 Tab(*)) 1 tab PO BID [facility] Last Admin: 07/17/19 08:50 Dose: 1 tab Cetirizine HCl (Zyrtec*) 10 mg PO DAILY [facility] Last Admin: 07/17/19 08:51 Dose: 10 mg Clonazepam (Klonopin Tab(*)) 0.5 mg PO BID [facility] Last Admin: 07/17/19 08:51 Dose: 0.5 mg Dextrose (D50w Syringe 50 Ml*) 12.5 gm IV PUSH .FOR FS < 60 - SS PRN PRN Reason: FS < 60 Docusate Sodium (Colace Cap*) 200 mg PO BID [facility] Last Admin: 07/17/19 08:50 Dose: 200 mg Enoxaparin Sodium (Lovenox(*)) 80 mg SUBCUT Q12H [facility] Famotidine (Pepcid Tab*) 20 mg PO BID [facility]; Protocol Last Admin: 07/17/19 08:50 Dose: 20 mg Ferrous Sulfate (Ferrous Sulfate Tab*) 325 mg PO BID [facility] Last Admin: 07/17/19 08:50 Dose: 325 mg Gabapentin (Neurontin Cap(*)) 300 mg PO BEDTIME [facility] Last Admin: 07/16/19 22:46 Dose: 300 mg Guaifenesin (Mucinex*) 1,200 mg PO BID PRN PRN Reason: CONGESTION Insulin Glargine (Lantus(*)) 15 units SUBCUT BEDTIME [facility] Last Admin: 07/16/19 22:43 Dose: 15 units Insulin Human Lispro (Humalog*) 0 units SUBCUT ACHS [facility]; Protocol Lactulose (Lactulose*) 15 ml PO BEDTIME PRN PRN Reason: CONSTIPATION Levothyroxine Sodium (Synthroid Tab*) 50 mcg PO DAILY@0600 [facility] Last Admin: 07/17/19 05:54 Dose: 50 mcg Mometasone Furoate/Formoterol Fumar (Dulera 200/5 Mdi*) 2 puff INH BID [facility] Last Admin: 07/17/19 07:15 Dose: 2 puff Montelukast Sodium (Singulair Tab*) 10 mg PO BEDTIME [facility] Last Admin: 07/16/19 22:45 Dose: 10 mg Morphine Sulfate (Morphine Inj (Syringe))*) 2 mg IV Q4H PRN PRN Reason: PAIN - SEVERE Last Admin: 07/17/19 07:33 Dose: 2 mg Multivitamins/Minerals (Theragran/Minerals Tab*) 1 tab PO DAILY [facility] Last Admin: 07/17/19 08:50 Dose: 1 tab Nitroglycerin (Nitroglycerin Tab 0.4 Mg*) 0.4 mg SL Q5M PRN PRN Reason: PAIN - CHEST Ondansetron HCl (Zofran Inj*) 4 mg IV Q6H PRN PRN Reason: NAUSEA Ondansetron HCl (Zofran Odt Tab*) 4 mg PO TID PRN PRN Reason: NAUSEA/VOMITING Oxycodone HCl (Roxycodone Tab*) 5 mg PO TID [facility] Last Admin: 07/17/19 08:47 Dose: 5 mg Pantoprazole Sodium (Protonix Tab*) 20 mg PO DAILY [facility] Last Admin: 07/17/19 08:51 Dose: 20 mg Quetiapine Fumarate (Seroquel Xr Tab*) 200 mg PO DAILY [facility] Last Admin: 07/17/19 08:50 Dose: 200 mg Tiotropium [place] (Spiriva Respimat 2.5 Mcg) 2 puff INH DAILY [facility] Last Admin: 07/17/19 07:15 Dose: 2 puff Vilazodone HCl (Viibryd (Nf)) 40 mg PO DAILY [facility] Last Admin: 07/17/19 08:52 Dose: 40 mg Warfarin Sodium (Coumadin Tab(*)) 5 mg PO 1700 [facility]; Protocol Vital Signs - 8 hr 07/17/19 07/17/19 07/17/19 03:21 04:11 06:34 Temperature 97.5 F Pulse Rate 89 Respiratory 20 20 18 Rate Blood Pressure 134/66 (mmHg) O2 Sat by Pulse 97 Oximetry 07/17/19 07/17/19 07/17/19 07:30 07:33 08:47 Temperature 97.0 F Pulse Rate 88 Respiratory 18 18 18 Rate Blood Pressure 130/79 (mmHg) O2 Sat by Pulse 96 Oximetry 07/17/19 08:51 Temperature Pulse Rate Respiratory 18 Rate Blood Pressure (mmHg) O2 Sat by Pulse Oximetry Oxygen Devices in Use Now: Nasal Cannula Appearance: Patient is a 53yo female who appears stated age and is sitting in the bed in mild distress from pain. Eyes: No Scleral Icterus, PERRLA Ears/Nose/Mouth/Throat: NL Teeth, Lips, Gums, Clear Oropharnyx, Mucous Membranes Moist Neck: NL Appearance and Movements; NL JVP, Trachea Midline Respiratory: Symmetrical Chest Expansion and Respiratory Effort, - - Diminished throughout. Cardiovascular: NL Sounds; No Murmurs; No JVD, RRR, No Edema Abdominal: NL Sounds; No Tenderness; No Distention, No Hepatosplenomegaly Lymphatic: No Cervical Adenopathy Extremities: No Edema, No Clubbing, Cyanosis Skin: No Rash or Ulcers, No Nodules or Sclerosis, - - Chest tube present in right chest without bleeding. 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 - Patient Problems (1) Postprocedural pneumothorax Current Visit: Yes Status: Acute Code(s): J95.811 - POSTPROCEDURAL PNEUMOTHORAX SNOMED Code(s): 544434739 Comment: - Due to Lung Biopsy on 07/09. - Worsened since then. - S/P Chest tube placement on 07/15, no residual pnuemothorax or bleeding - Water-seal today, management per surgery (2) COPD (chronic obstructive pulmonary disease) Current Visit: Yes Status: Acute Code(s): J44.9 - CHRONIC OBSTRUCTIVE PULMONARY DISEASE, UNSPECIFIED SNOMED Code(s): 18881060 Comment: - Severe, Current Smoker - On Triple inhaler therapy, montelukast, and PRN Albuterol Nebulizers - Not in acute exacerbation (3) Lung mass Current Visit: Yes Status: Acute Code(s): R91.8 - OTHER NONSPECIFIC ABNORMAL FINDING OF LUNG FIELD SNOMED Code(s): 047121901 Comment: - Reveals non-keratinizing SCC - Will need short term Hematology/Oncology Follow up (4) CAD (coronary artery disease) Current Visit: Yes Status: Acute Code(s): I25.10 - ATHSCL HEART DISEASE OF [place] CORONARY ARTERY W/O ANG PCTRS SNOMED Code(s): 66560684 Comment: - Not on Aspirin or Statin - Follow up outpatient for routine age-appropriate screening. (5) Chronic pain Current Visit: Yes Status: Acute Code(s): G89.29 - OTHER CHRONIC PAIN SNOMED Code(s): 17973900 Comment: - Continue scheduled Oxycodone - PRN morphine for increased pain. (6) H/O mitral valve replacement with mechanical valve Current Visit: Yes Status: Acute Code(s): Z95.2 - PRESENCE OF PROSTHETIC HEART VALVE SNOMED Code(s): 92420842501177 Comment: - INR goal 2.5-3.5 - Bridge with full-dose Lovenox starting on 07/16 (7) CKD (chronic kidney disease) Current Visit: Yes Status: Acute Code(s): N18.9 - CHRONIC KIDNEY DISEASE, UNSPECIFIED SNOMED Code(s): 872330942 Comment: - At baseline - Avoid Nephrotoxins (8) Hypothyroidism Current Visit: Yes Status: Acute Code(s): E03.9 - HYPOTHYROIDISM, UNSPECIFIED SNOMED Code(s): 18672615 Comment: - Continue Levothyroxine, TSH WNL in May. (9) DVT prophylaxis Current Visit: Yes Status: Acute Code(s): Z29.9 - ENCOUNTER FOR PROPHYLACTIC MEASURES, UNSPECIFIED SNOMED Code(s): 518025507 Comment: - Full dose Lovenox (10) Full code status Current Visit: Yes Status: Acute Code(s): Z78.9 - OTHER SPECIFIED HEALTH STATUS SNOMED Code(s): 540237940 Status and Disposition: Inpatient for Pneumothorax
[2019-07-17] MEDS: Enoxaparin(*) 80 MG/0.8 ML SYR SUBCUT SCH ×2 (10:28→20:59)
[2019-07-17] MEDS: Insulin LISPRO* 1 UNITS UNIT SUBCUT SCH ×3 (12:39→21:00)
[2019-07-17] MEDS: Metoprolol Tartrate TAB* 25 MG PO SCH ×2 (13:49→20:57)
--- NOTE | 2019-07-17 17:21 | PN ---
Hospitalist Progress Note Date of Service: 07/17/19 Patient noted to be in sinus tachycardia. Resumed Patient's Metoprolol with gradual improvement noted.
[2019-07-17] MEDS: Warfarin TAB(*) 5 MG PO SCH (17:42)
[2019-07-17] MEDS ORDERED: Enoxaparin(*) 80 MG/0.8 ML SYR SUBCUT SCH (20:00)
[2019-07-17] MEDS: Montelukast Sodium TAB* 10 MG PO SCH (20:57)
[2019-07-17] MEDS: Atorvastatin* 10 MG TAB PO SCH (20:58)
[2019-07-17] MEDS: Gabapentin CAP(*) 300 MG PO SCH (20:59)
[2019-07-17] MEDS: Insulin GLARGINE(*) 1 UNITS UNIT SUBCUT SCH (21:00)
[2019-07-18] MEDS: Levothyroxine TAB* 50 MCG TAB PO SCH (05:46)
[2019-07-18] MEDS: Acetaminophen TAB* 325 MG PO PRN (07:32)
[2019-07-18] MEDS: oxyCODONE TAB* 5 MG TAB PO SCH ×3 (08:34→22:29)
[2019-07-18] MEDS: clonazePAM TAB(*) 0.5 MG PO SCH ×2 (08:34→23:46)
[2019-07-18] MEDS: Baclofen TAB* 10 MG PO SCH ×3 (08:35→20:04)
[2019-07-18] MEDS: Insulin LISPRO* 1 UNITS UNIT SUBCUT SCH ×4 (08:37→22:11)
[2019-07-18] MEDS: Enoxaparin(*) 80 MG/0.8 ML SYR SUBCUT SCH ×3 (08:38→22:43)
[2019-07-18] MEDS: Docusate CAP* 100 MG PO SCH ×2 (08:38→20:04)
[2019-07-18] MEDS: Metoprolol Tartrate TAB* 25 MG PO SCH ×2 (08:38→22:30)
[2019-07-18] MEDS: Carbidopa/Levodop 25/100 MG TAB(*) PO SCH ×2 (08:38→22:11)
[2019-07-18] MEDS: Famotidine TAB* 20 MG PO SCH ×2 (08:39→20:04)
[2019-07-18] MEDS: Multivitamins/Minerals TAB PO SCH (08:39)
[2019-07-18] MEDS: Ferrous Sulfate TAB* 325 MG PO SCH ×2 (08:39→20:04)
[2019-07-18] MEDS: Cetirizine* 10 MG TAB PO SCH (08:39)
[2019-07-18] MEDS: QUEtiapine XR TAB* 200 MG PO SCH (08:39)
[2019-07-18] MEDS: CMC:Vilazodone (NF) 40 MG TAB PO SCH (08:40)
[2019-07-18] MEDS: Mometasone/Formoter 200/5 MDI INH SCH ×2 (08:45→22:30)
[2019-07-18] MEDS: SPIRIVA Respimat* (tiotropium) 2.5 mcg/inh Inhaler INH SCH (08:46)
[2019-07-18] MEDS: Pantoprazole TAB * 40 MG TAB PO SCH (08:47)
[2019-07-18] MEDS: Morphine INJ* 2 MG/ML 1 ML SYRINGE (TWO MG - NEW SYRINGE VERSION) IV PRN (08:48)
--- NOTE | 2019-07-18 09:06 | PN ---
Progress Note - Progress Note Date of Service: 07/18/19 Note: Surgical progress note S: Feeling better. Denies pain, fever, chills. No more SOB than her baseline. Would like to go home. O: Temp Pulse Resp BP Pulse Ox 97.7 F 87 18 141/68 95 07/18/19 07:49 07/18/19 07:49 07/18/19 08:48 07/18/19 07:49 07/18/19 07:49 Intake and Output Last 24 Hours 07/16/19 07/17/19 07/18/19 07/19/19 06:59 06:59 06:59 06:59 Intake Total 300 665 Output Total 206 629 300 Balance 94 36 -300 Weight 170 lb Intake: IV Fluids 20 NS (0.9%) 20 IVPB 100 Magnesium 100 Oral 300 545 Output: Chest Tube #1 6 4 Urine 200 625 300 Other: Estimated Void Large Large PEX General: Alert, in NAD. HEENT: Trachea midline. Oropharynx clear. PERRLA. Heart: RRR, no MRG. Lungs: CTAB. R chest tube in place. ABD: Soft, NT/ND. Extremities: Distal pulses intact bilaterally. No edema or tenderness. Chest tube removed and bandaged with petroleum gauze. Tolerated well. Assessment and plan: 53 yo F with R PTX. X-Ray demonstrates resolution of the PTX. Chest tube removed. Ok for discharge from our standpoint. Seen and discussed with Dr. Chavez.
[2019-07-18 09:24] LABS: ABS Basophils 0.1 10^3/ul (0-0.2); ABS Lymphocytes 1.4 10^3/ul (1.0-4.8); ABS Monocytes 0.4 10^3/ul (0-0.8); ABS Neutrophils 6.2 10^3/ul (1.5-7.7); Eosinophil % 0.6 %; Hematocrit 38 % (35-47); Hemoglobin 13.1 g/dL (12.0-16.0); Lymphocyte % 17.3 %; Mean Corpuscular HGB Conc 34 g/dL (31-36); Mean Corpuscular Hemoglobin 32 pg (27-31); Mean Corpuscular Volume 93 fL (80-97); Mean Platelet Volume 7.8 fL (7.4-10.4); Platelet Count 208 10^3/uL (150-450); Red Blood Count 4.13 10^6 /uL (3.70-4.87); Red Cell Distribution Width 15 % (10-15); White Blood Count 8.1 10^3/uL (3.5-10.8)
[2019-07-18 09:32] LABS: INR 1.2 (0.82-1.09)
[2019-07-18 09:41] LABS: BUN/Creatinine Ratio 22.9 (8-20); Calcium 8.9 mg/dL (8.6-10.3); EGFR African American 73.3 (>60); EGFR Non-African American 60.6 (>60); Potassium 4.3 mmol/L (3.5-5.0)
--- NOTE | 2019-07-18 13:50 | DCNOTE ---
Subjective Date of Service: 07/18/19 Interval History: Patient drowsy on exam. She awakes to voice but falls asleep during exam. She does states she has some mild pain/tenerness where CT was pulled but overall reports this to be improving. She would like to go home. per primary RN she reports she was given morphine 4 mg when chest tube was pulled out and has been sleeping after. Family History: Unchanged from Admission Social History: Unchanged from Admission Past Medical History: Unchanged from Admission Objective Active Medications: Acetaminophen (Tylenol Tab*) 650 mg PO Q6H PRN PRN Reason: MILD PAIN or TEMP > 100.4 Last Admin: 07/18/19 07:32 Dose: 650 mg Albuterol (Ventolin 2.5 Mg/3 Ml Neb.Anna*) 2.5 mg INH Q4H PRN PRN Reason: SHORTNESS OF BREATH Atorvastatin Calcium (Lipitor*) 10 mg PO BEDTIME [facility] Last Admin: 07/17/19 20:58 Dose: 10 mg Baclofen (Lioresal Tab*) 10 mg PO TID [facility] Last Admin: 07/18/19 13:23 Dose: Not Given Benzonatate (Tessalon Cap*) 100 mg PO BID PRN PRN Reason: COUGH Carbidopa/Levodopa (Sinemet 25/100 Tab(*)) 1 tab PO BID [facility] Last Admin: 07/18/19 08:38 Dose: 1 tab Cetirizine HCl (Zyrtec*) 10 mg PO DAILY [facility] Last Admin: 07/18/19 08:39 Dose: 10 mg Clonazepam (Klonopin Tab(*)) 0.5 mg PO BID [facility] Last Admin: 07/18/19 08:34 Dose: 0.5 mg Dextrose (D50w Syringe 50 Ml*) 12.5 gm IV PUSH .FOR FS < 60 - SS PRN PRN Reason: FS < 60 Docusate Sodium (Colace Cap*) 200 mg PO BID [facility] Last Admin: 07/18/19 08:38 Dose: 200 mg Enoxaparin Sodium (Lovenox(*)) 80 mg SUBCUT Q12H [facility] Last Admin: 07/18/19 08:38 Dose: 80 mg Famotidine (Pepcid Tab*) 20 mg PO BID [facility]; Protocol Last Admin: 07/18/19 08:39 Dose: 20 mg Ferrous Sulfate (Ferrous Sulfate Tab*) 325 mg PO BID [facility] Last Admin: 07/18/19 08:39 Dose: 325 mg Gabapentin (Neurontin Cap(*)) 300 mg PO BEDTIME [facility] Last Admin: 07/17/19 20:59 Dose: 300 mg Guaifenesin (Mucinex*) 1,200 mg PO BID PRN PRN Reason: CONGESTION Insulin Glargine (Lantus(*)) 15 units SUBCUT BEDTIME [facility] Last Admin: 07/17/19 21:00 Dose: 15 units Insulin Human Lispro (Humalog*) 0 units SUBCUT ACHS [facility]; Protocol Last Admin: 07/18/19 12:36 Dose: 3 units Lactulose (Lactulose*) 15 ml PO BEDTIME PRN PRN Reason: CONSTIPATION Levothyroxine Sodium (Synthroid Tab*) 50 mcg PO DAILY@0600 [facility] Last Admin: 07/18/19 05:46 Dose: 50 mcg Metoprolol Tartrate (Lopressor Tab*) 25 mg PO BID [facility] Last Admin: 07/18/19 08:38 Dose: 25 mg Mometasone Furoate/Formoterol Fumar (Dulera 200/5 Mdi*) 2 puff INH BID [facility] Last Admin: 07/18/19 08:45 Dose: 2 puff Montelukast Sodium (Singulair Tab*) 10 mg PO BEDTIME [facility] Last Admin: 07/17/19 20:57 Dose: 10 mg Morphine Sulfate (Morphine Inj (Syringe))*) 2 mg IV Q4H PRN PRN Reason: PAIN - SEVERE Last Admin: 07/18/19 08:48 Dose: 2 mg Multivitamins/Minerals (Theragran/Minerals Tab*) 1 tab PO DAILY [facility] Last Admin: 07/18/19 08:39 Dose: 1 tab Nitroglycerin (Nitroglycerin Tab 0.4 Mg*) 0.4 mg SL Q5M PRN PRN Reason: PAIN - CHEST Ondansetron HCl (Zofran Inj*) 4 mg IV Q6H PRN PRN Reason: NAUSEA Ondansetron HCl (Zofran Odt Tab*) 4 mg PO TID PRN PRN Reason: NAUSEA/VOMITING Oxycodone HCl (Roxycodone Tab*) 5 mg PO TID [facility] Last Admin: 07/18/19 13:23 Dose: Not Given Pantoprazole Sodium (Protonix Tab*) 20 mg PO DAILY [facility] Last Admin: 07/18/19 08:47 Dose: 20 mg Quetiapine Fumarate (Seroquel Xr Tab*) 200 mg PO DAILY [facility] Last Admin: 07/18/19 08:39 Dose: 200 mg Tiotropium [place] (Spiriva Respimat 2.5 Mcg) 2 puff INH DAILY [facility] Last Admin: 07/18/19 08:46 Dose: 2 puff Vilazodone HCl (Viibryd (Nf)) 40 mg PO DAILY [facility] Last Admin: 07/18/19 08:40 Dose: 40 mg Warfarin Sodium (Coumadin Tab(*)) 5 mg PO 1700 [facility]; Protocol Last Admin: 07/17/19 17:42 Dose: 5 mg Vital Signs - 8 hr 07/18/19 07/18/19 07/18/19 07:49 08:00 08:34 Temperature 97.7 F Pulse Rate 87 Respiratory 16 18 18 Rate Blood Pressure 141/68 (mmHg) O2 Sat by Pulse 95 Oximetry 07/18/19 07/18/19 07/18/19 08:48 09:36 10:30 Temperature Pulse Rate Respiratory 18 18 18 Rate Blood Pressure (mmHg) O2 Sat by Pulse Oximetry 07/18/19 10:56 Temperature 97.7 F Pulse Rate 86 Respiratory 16 Rate Blood Pressure 142/74 (mmHg) O2 Sat by Pulse 97 Oximetry Oxygen Devices in Use Now: Nasal Cannula Appearance: obese chroncially ill female laying in bed sleeping ->awakes to voice on arrival. Appears sleepy/sedated Eyes: PERRLA Ears/Nose/Mouth/Throat: Mucous Membranes Moist Neck: NL Appearance and Movements; NL JVP Respiratory: Symmetrical Chest Expansion and Respiratory Effort, Clear to Auscultation Cardiovascular: NL Sounds; No Murmurs; No JVD, RRR, No Edema Abdominal: NL Sounds; No Tenderness; No Distention Extremities: No Edema, - - s/p left BKA Skin: No Rash or Ulcers, No Nodules or Sclerosis Neurological: Alert and Oriented x 3, - - drowsy - awkaes to voice and answers questions but falls asleep during exam Lines/Tubes/Other Access: Clean, Dry and Intact Peripheral IV Nutrition: Taking PO's Result Diagrams: 07/18/19 08:44 07/18/19 08:44 Assess/Plan/Problems-Billing Assessment: Patient is a 53yo female with a PMH for COPD, 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 Today chest tube was removed with resolution of pneumothorax on chest xray. received morphine prior to removing CT and now patient is too drowsy to be DC'd to home - now with plan of later DC vs tomorrow. - Patient Problems (1) Postprocedural pneumothorax Comment: - Due to Lung Biopsy on 07/09. - S/P Chest tube placement on 07/15, no residual pnuemothorax or bleeding - management per surgery - CT Dc'd today -> from surgical perspective she can go home. Repeat chest xray shows resolution of pneumo (2) CAD (coronary artery disease) Comment: - Not on Aspirin or Statin - Follow up outpatient for routine age-appropriate screening. (3) CKD (chronic kidney disease) Comment: - At baseline - Avoid Nephrotoxins (4) COPD (chronic obstructive pulmonary disease) Comment: - Severe, Current Smoker - On Triple inhaler therapy, montelukast, and PRN Albuterol Nebulizers - Not in acute exacerbation (5) Chronic pain Comment: - Continue scheduled Oxycodone - DC PRN morphine - (6) H/O mitral valve replacement with mechanical valve Comment: - INR goal 2.5-3.5 - Bridge with full-dose Lovenox starting on 07/16 - Coumadin 5 mg daily (7) Hypothyroidism Comment: - Continue Levothyroxine, TSH WNL in May. (8) Lung mass Comment: - Reveals non-keratinizing SCC - Will need short term Hematology/Oncology Follow up (9) DVT prophylaxis Comment: - Full dose Lovenox (10) Full code status Status and Disposition: Inpatient for Pneumothorax. Plan was to DC patient to home but she is quite sleepy after receiving morphine for CT removal - concerned about her unable to transfer from cab to wheelchair to house. Plan to DC later today vs tomorrow.
[2019-07-18] MEDS: Warfarin TAB(*) 5 MG PO SCH (17:48)
[2019-07-18] MEDS: Atorvastatin* 10 MG TAB PO SCH (20:04)
[2019-07-18] MEDS: Gabapentin CAP(*) 300 MG PO SCH (22:11)
[2019-07-18] MEDS: Insulin GLARGINE(*) 1 UNITS UNIT SUBCUT SCH (22:12)
[2019-07-18] MEDS: Montelukast Sodium TAB* 10 MG PO SCH (22:29)
[2019-07-19] MEDS: Levothyroxine TAB* 50 MCG TAB PO SCH (05:47)
[2019-07-19 06:18] LABS: INR 1.34 (0.82-1.09)
[2019-07-19] MEDS: Baclofen TAB* 10 MG PO SCH ×2 (07:55→12:48)
[2019-07-19] MEDS: oxyCODONE TAB* 5 MG TAB PO SCH ×3 (07:56→12:48)
[2019-07-19] MEDS: QUEtiapine XR TAB* 200 MG PO SCH (07:56)
[2019-07-19] MEDS: Mometasone/Formoter 200/5 MDI INH SCH (08:53)
[2019-07-19] MEDS: SPIRIVA Respimat* (tiotropium) 2.5 mcg/inh Inhaler INH SCH (08:53)
[2019-07-19] MEDS: Docusate CAP* 100 MG PO SCH (08:54)
[2019-07-19] MEDS: CMC:Vilazodone (NF) 40 MG TAB PO SCH (08:54)
[2019-07-19] MEDS: Famotidine TAB* 20 MG PO SCH (08:54)
[2019-07-19] MEDS: Multivitamins/Minerals TAB PO SCH (08:55)
[2019-07-19] MEDS: Pantoprazole TAB * 40 MG TAB PO SCH (08:55)
[2019-07-19] MEDS: Ferrous Sulfate TAB* 325 MG PO SCH (08:55)
[2019-07-19] MEDS: Metoprolol Tartrate TAB* 25 MG PO SCH (08:56)
[2019-07-19] MEDS: clonazePAM TAB(*) 0.5 MG PO SCH (08:56)
[2019-07-19] MEDS: Cetirizine* 10 MG TAB PO SCH (08:57)
[2019-07-19] MEDS: Insulin LISPRO* 1 UNITS UNIT SUBCUT SCH ×2 (08:57→12:48)
[2019-07-19] MEDS: Carbidopa/Levodop 25/100 MG TAB(*) PO SCH (08:57)
[2019-07-19] MEDS: Enoxaparin(*) 80 MG/0.8 ML SYR SUBCUT SCH (08:58)
[2019-07-19 11:43] VITALS: BP 125/64
--- NOTE | 2019-07-19 14:16 | DCNOTE ---
Subjective Date of Service: 07/19/19 Interval History: Patient is much more awake today on exam and would like to be discharged home. She states she is at her baseline. The patient and discussed her extensive medication list and states she has been on this regimen for a long time. She denies feeling too sleepy at home on her medications, denies any recent falls. Her also states she is not too sleepy at home and he 'watches" her with her medications. Discussed with patient results of lung biopsy per her request. She plans to f/u with Dr. Cervantes on sunday . Patient reports Dr. 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5 mg Atorvastatin Calcium (Lipitor*) 10 mg PO BEDTIME [facility] Last Admin: 07/18/19 20:04 Dose: 10 mg Baclofen (Lioresal Tab*) 10 mg PO TID [facility] Last Admin: 07/19/19 12:48 Dose: Not Given Benzonatate (Tessalon Cap*) 100 mg PO BID PRN PRN Reason: COUGH Carbidopa/Levodopa (Sinemet 25/100 Tab(*)) 1 tab PO BID [facility] Last Admin: 07/19/19 08:57 Dose: 1 tab Cetirizine HCl (Zyrtec*) 10 mg PO DAILY [facility] Last Admin: 07/19/19 08:57 Dose: 10 mg Clonazepam (Klonopin Tab(*)) 0.5 mg PO BID [facility] Last Admin: 07/19/19 08:56 Dose: 0.5 mg Dextrose (D50w Syringe 50 Ml*) 12.5 gm IV PUSH .FOR FS < 60 - SS PRN PRN Reason: FS < 60 Docusate Sodium (Colace Cap*) 200 mg PO BID [facility] Last Admin: 07/19/19 08:54 Dose: 200 mg Enoxaparin Sodium (Lovenox(*)) 80 mg SUBCUT Q12H [facility] Last Admin: 07/19/19 08:58 Dose: 80 mg Famotidine (Pepcid Tab*) 20 mg PO BID [facility]; Protocol Last Admin: 07/19/19 08:54 Dose: 20 mg Ferrous Sulfate (Ferrous Sulfate Tab*) 325 mg PO BID [facility] Last Admin: 07/19/19 08:55 Dose: 325 mg Gabapentin (Neurontin Cap(*)) 300 mg PO BEDTIME [facility] Last Admin: 07/18/19 22:11 Dose: 300 mg Guaifenesin (Mucinex*) 1,200 mg PO BID PRN PRN Reason: CONGESTION Last Admin: 07/18/19 22:11 Dose: 1,200 mg Insulin Glargine (Lantus(*)) 15 units SUBCUT BEDTIME [facility] Last Admin: 07/18/19 22:12 Dose: 15 units Insulin Human Lispro (Humalog*) 0 units SUBCUT ACHS [facility]; Protocol Last Admin: 07/19/19 12:48 Dose: 6 units Lactulose (Lactulose*) 15 ml PO BEDTIME PRN PRN Reason: CONSTIPATION Levothyroxine Sodium (Synthroid Tab*) 50 mcg PO DAILY@0600 [facility] Last Admin: 07/19/19 05:47 Dose: 50 mcg Metoprolol Tartrate (Lopressor Tab*) 25 mg PO BID [facility] Last Admin: 07/19/19 08:56 Dose: 25 mg Mometasone Furoate/Formoterol Fumar (Dulera 200/5 Mdi*) 2 puff INH BID [facility] Last Admin: 07/19/19 08:53 Dose: 2 puff Montelukast Sodium (Singulair Tab*) 10 mg PO BEDTIME [facility] Last Admin: 07/18/19 22:29 Dose: 10 mg Multivitamins/Minerals (Theragran/Minerals Tab*) 1 tab PO DAILY [facility] Last Admin: 07/19/19 08:55 Dose: 1 tab Nitroglycerin (Nitroglycerin Tab 0.4 Mg*) 0.4 mg SL Q5M PRN PRN Reason: PAIN - CHEST Ondansetron HCl (Zofran Inj*) 4 mg IV Q6H PRN PRN Reason: NAUSEA Ondansetron HCl (Zofran Odt Tab*) 4 mg PO TID PRN PRN Reason: NAUSEA/VOMITING Oxycodone HCl (Roxycodone Tab*) 5 mg PO TID [facility] Last Admin: 07/19/19 12:48 Dose: Not Given Pantoprazole Sodium (Protonix Tab*) 20 mg PO DAILY [facility] Last Admin: 07/19/19 08:55 Dose: 20 mg Quetiapine Fumarate (Seroquel Xr Tab*) 200 mg PO DAILY [facility] Last Admin: 07/19/19 07:56 Dose: Not Given Tiotropium [place] (Spiriva Respimat 2.5 Mcg) 2 puff INH DAILY [facility] Last Admin: 07/19/19 08:53 Dose: 2 puff Vilazodone HCl (Viibryd (Nf)) 40 mg PO DAILY [facility] Last Admin: 07/19/19 08:54 Dose: 40 mg Warfarin Sodium (Coumadin Tab(*)) 5 mg PO 1700 [facility]; Protocol Last Admin: 07/18/19 17:48 Dose: 5 mg Vital Signs - 8 hr 07/19/19 07/19/19 07/19/19 07:28 07:56 08:56 Temperature 98.2 F Pulse Rate 96 Respiratory 20 16 20 Rate Blood Pressure 123/65 (mmHg) O2 Sat by Pulse 100 Oximetry 07/19/19 07/19/19 07/19/19 10:21 11:42 12:49 Temperature 97.5 F Pulse Rate 87 Respiratory 16 17 18 Rate Blood Pressure 125/64 (mmHg) O2 Sat by Pulse 96 Oximetry Oxygen Devices in Use Now: Nasal Cannula Appearance: alert and oriendt x3 in nad, flat affect Eyes: PERRLA Ears/Nose/Mouth/Throat: Mucous Membranes Moist Neck: NL Appearance and Movements; NL JVP Respiratory: Symmetrical Chest Expansion and Respiratory Effort, Clear to Auscultation Cardiovascular: NL Sounds; No Murmurs; No JVD, RRR Abdominal: NL Sounds; No Tenderness; No Distention, - - obese, round Extremities: - - s/p left BKA Neurological: Alert and Oriented x 3 Lines/Tubes/Other Access: Clean, Dry and Intact Peripheral IV Nutrition: Taking PO's Result Diagrams: 07/18/19 08:44 07/18/19 08:44 Assess/Plan/Problems-Billing Assessment: Patient is a 53yo female with a PMH for COPD, 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 Today chest tube was removed with resolution of pneumothorax on chest xray. Stable for DC to home - Patient Problems (1) Lung mass Comment: - Reveals non-keratinizing SCC - Will need short term Hematology/Oncology Follow up (2) Postprocedural pneumothorax Comment: - Due to Lung Biopsy on 07/09. - S/P Chest tube placement on 07/15, no residual pnuemothorax or bleeding - management per surgery - CT Dc'd today -> from surgical perspective she can go home. Repeat chest xray shows resolution of pneumo (3) CAD (coronary artery disease) Comment: - Not on Aspirin or Statin - Follow up outpatient for routine age-appropriate screening. (4) CKD (chronic kidney disease) Comment: - At baseline - Avoid Nephrotoxins (5) COPD (chronic obstructive pulmonary disease) Comment: - Severe, Current Smoker - On Triple inhaler therapy, montelukast, and PRN Albuterol Nebulizers - Not in acute exacerbation (6) Chronic pain Comment: - Continue scheduled Oxycodone - DC PRN morphine - (7) H/O mitral valve replacement with mechanical valve Comment: - INR goal 2.5-3.5 - Bridge with full-dose Lovenox starting on 07/16 - Patient will go back to [facility] prescription of Coumadin 7.5 mg daily - INR to be done on sunday (8) Hypothyroidism Comment: - Continue Levothyroxine, TSH WNL in May. (9) DVT prophylaxis Comment: - Full dose Lovenox (10) Full code status Status and Disposition: Inpatient for Pneumothorax. Plan was to DC patient to home. Follow up with PCP this week and her heme/Onc
--- NOTE | 2019-07-19 15:48 | DS ---
CC: Dr. Cervantes* DISCHARGE SUMMARY: DATE OF ADMISSION: 07/16/19 DATE OF DISCHARGE: 07/19/19 PROVIDER: Minerva Oliva NP ATTENDING PHYSICIAN: Dr. Samina Singleton* (report dictated by Minerva Oliva NP). PRIMARY CARE PROVIDER: Dr. Supriya Merino, [facility] in [place]. MEDICAL WRITER: Dr. Cervantes. HOSPITAL STATUS: Inpatient. DISCHARGE DIAGNOSES: 1. Postprocedural pneumothorax secondary to lung biopsy on 07/10/19 for lung mass, now status post chest tube placement. 2. Lung mass, recent biopsy resulted in malignant nonkeratinizing squamous cell carcinoma, new diagnosis. 3. Current tobacco abuse. 4. Mechanical valve, on home Coumadin, currently on Lovenox to bridge due to subtherapeutic INR. SECONDARY DIAGNOSES: 1. Coronary artery disease. 2. Hypertension. 3. Chronic obstructive pulmonary disease. 4. Chronic kidney disease. 5. Hypothyroidism. 6. Type 2 diabetes, insulin dependent. 7. 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 8. History of osteomyelitis on the right lower extremity. 9. History of infective endocarditis. 10. Hypertension. DISCHARGE MEDICATIONS: 1. Metoprolol tartrate 25 mg p.o. b.i.d. 2. Lantus 15 units subcu at bedtime. 3. Mucinex 1200 mg p.o. b.i.d. p.r.n. 4. Klonopin 0.5 mg p.o. b.i.d. 5. Coumadin increased to 7.5 mg p.o. at bedtime (increased from 5 mg p.o. at bedtime). 6. Vilazodone 40 mg p.o. daily. 7. Spiriva 1 cap INH daily. 8. Zocor 20 mg p.o. at bedtime. 9. Zantac 150 mg p.o. b.i.d. 10. Seroquel XL 200 mg p.o. daily. 11. Oxycodone HCl 5 mg p.o. t.i.d. 12. Zofran 4 mg p.o. t.i.d. p.r.n. 13. Prilosec 20 mg p.o. daily. 14. Nitroglycerin 0.4 mg sublingual q.5 minutes p.r.n. chest pain/angina. 15. Multivitamin with mineral 1 tab p.o. daily. 16. Singulair 10 mg p.o. at bedtime. 17. Synthroid 50 mcg p.o. daily. 18. Xopenex 1 puff INH q.6 hours p.r.n. 19. Lactulose 1 ounce p.o. at bedtime p.r.n. constipation. 20. Insulin lispro sliding scale. 21. Neurontin 300 mg p.o. q.p.m. 22. Advair 250/50 one INH b.i.d. 23. Ferrous sulfate 325 mg p.o. b.i.d. 24. Colace 200 mg p.o. b.i.d. 25. Zyrtec 10 mg p.o. daily. 26. Sinemet 25/100 one tab p.o. b.i.d. 27. Tessalon caps 100 mg p.o. b.i.d. p.r.n. 28. Baclofen 10 mg p.o. t.i.d. 29. ProAir 2 puffs INH q.4 to 6 hours p.r.n. 30. Albuterol nebulizer 2.5 mg INH q.4 to 6 hours p.r.n. 31. Acetaminophen 325 mg p.o. q.4 hours p.r.n. New medications: Lovenox 80 mg subcu q.12 hours until INR is 2.5 to 3.5. DISCHARGE PLAN: 1. Discharge to home. I spoke with her over the phone. She will transfer by cab to [place] and her and her friend will transport the patient to her wheelchair and into the house. 2. Follow up with primary care provider, Dr. Supriya Merino. The patient and have been instructed to call Sunday for a followup appointment. 3. Follow up with Dr. Cervantes. The patient and her were instructed to call on Sunday for a followup appointment. 4. The patient will need a referral and a consultation to Heme/Onc. She thinks she prefers to stay in [place] to be close to her home. She is going to discuss this with Dr. Cervantes this week. 5. INR to be checked on 07/21/19. DISCHARGE SUMMARY AND HOSPITALIZATION COURSE: Please see history and physical by DANIELITO Quinn for full admission details, but in summary this is a 53- year-old female with a complex past medical history, who presented to the emergency department on 07/16/19 after she underwent a CT guided biopsy with Dr. Almanzar on 07/10/19 and then subsequently developed severe right chest pain 4 days after her procedure and was instructed to come to the emergency department where she was noted to have a pneumothorax. She was seen by our surgical team, Dr. Ron Chavez who placed a chest tube and the hospitalist admitted the patient to the medical service. The patient did well throughout her hospitalization. She had the chest tube removed on 07/18/19, had a repeat chest x-ray that showed complete resolution of the pneumothorax. She was going to be discharged home yesterday; however, the patient did receive some morphine when the chest tube was removed and was very sleepy throughout the day. Today, she is much better, alert and oriented x3 and stable for discharge to home. I did discuss with her and her her extensive medication list and a worry is that she has too many sedating medications she takes; however, both the patient and her state she is not drowsy at home. The patient did ask for her results from the lung biopsy, which does show that the lung mass is malignant with nonkeratinizing squamous cell carcinoma. This was discussed with the patient. She will follow up with Dr. Cervantes's office on Sunday and we will discuss which Oncology office she wants to be referred to. The patient does report she has a wonderful and feels very supported at home. Please note the patient's Coumadin has been increased from 5 mg to 7.5 mg q.h.s. as her INR has been subtherapeutic throughout hospitalization. On , it was 1.49 and today on repeat 07/19/19 is 1.34. She was also noted only to be on 1 dosing a day of Lovenox at home and this has been increased to q.12 hours and discussed with the patient that she will need to take this twice daily. Her INRs will need to be followed up with closely. TIME SPENT: Approximately 60 minutes was spent on this discharge. MINERVA OLIVA, MATERIAL CONTROL MANAGER [id number]/[facility] #: [id number] AFUA
== END 2019-07-19 17:45 | disposition home health service (06) | DRG 143 ==
LOC: ED 15:53 → SSU 18:55 → OBSVTOIN 07-17 11:00
PROVIDERS: ADMIT Internal Medicine; ATTEND Internal Medicine
PROC: 0W9930Z Drainage of Right Pleural Cavity with Drainage Device, Percutaneous Approach (ICD-10-PCS; principal; 2019-07-16)
DX: J95.811 Postprocedural pneumothorax (principal); C34.91 Malignant neoplasm of unspecified part of right bronchus or lung; J98.11 Atelectasis; I12.9 Hypertensive chronic kidney disease with stage 1 through stage 4 chronic kidney disease, or unspecified chronic kidney disease; E11.22 Type 2 diabetes mellitus with diabetic chronic kidney disease; N18.9 Chronic kidney disease, unspecified; E03.9 Hypothyroidism, unspecified; E66.9 Obesity, unspecified; G89.29 Other chronic pain; I25.10 Atherosclerotic heart disease of native coronary artery without angina pectoris; F41.8 Other specified anxiety disorders; J44.9 Chronic obstructive pulmonary disease, unspecified; F17.210 Nicotine dependence, cigarettes, uncomplicated; K21.9 Gastro-esophageal reflux disease without esophagitis; Z68.28 Body mass index [BMI] 28.0-28.9, adult; Z95.2 Presence of prosthetic heart valve; Z86.718 Personal history of other venous thrombosis and embolism; Z88.5 Allergy status to narcotic agent; Z88.8 Allergy status to other drugs, medicaments and biological substances; Z84.1 Family history of disorders of kidney and ureter; Z83.3 Family history of diabetes mellitus; Z82.5 Family history of asthma and other chronic lower respiratory diseases; Z89.511 Acquired absence of right leg below knee; Z86.711 Personal history of pulmonary embolism; Z79.01 Long term (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 of anticoagulants; Z79.4 Long term (current) use of insulin; Z79.891 Long term (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 of 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; Z79.51 Long term (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 of inhaled steroids; Z79.899 Other long term (current) drug therapy
CPT/HCPCS: 36415; 71045; 71046; 80048; 80053; 83735; 85025; 85610; 86140; 93005; 94640; 96374; 96376; 99285; A9270-GY; J1650; J2270; J3475; J3535